=== PATIENT | female | born 1985 ===

== ENCOUNTER 2020-07-24 15:52 | Outpatient (REF) | payer MEDICAID, SELFPAY ==
[2020-07-24 16:28] LABS: COVID-19 Test Negative (Negative)
== END 2020-07-24 15:53 | disposition home or self-care (01) ==
LOC: HO.LAB 15:52
PROVIDERS: Visit Provider Internal Medicine
DX: Z12.31 Encounter for screening mammogram for malignant neoplasm of breast (principal)
CPT/HCPCS: 87635

== ENCOUNTER 2021-02-10 08:30 | Outpatient (REF) | payer MEDICAID, SELFPAY ==
[2021-02-10 15:25] LABS: CT PCR NOT DETECTED (Not Detect.); NG PCR NOT DETECTED (Not Detect.)
[2021-02-11 12:33] LABS: BV Int Neg Control Negative (Negative); BV Int Pos Control Positive (Positive)
[2021-02-12 21:57] LABS: HPV mRNA E6/E7 rflx Not Detected (Not Detected)
== END 2021-02-10 08:31 | disposition home or self-care (01) ==
LOC: HO.LAB 08:30
PROVIDERS: Visit Provider Advanced Practice Midwife
DX: Z01.419 Encounter for gynecological examination (general) (routine) without abnormal findings (principal); Z11.51 Encounter for screening for human papillomavirus (HPV); Z11.3 Encounter for screening for infections with a predominantly sexual mode of transmission; N76.0 Acute vaginitis; B96.89 Other specified bacterial agents as the cause of diseases classified elsewhere; N63.10 Unspecified lump in the right breast, unspecified quadrant; N63.20 Unspecified lump in the left breast, unspecified quadrant; Z98.890 Other specified postprocedural states
CPT/HCPCS: 87480; 87491; 87510; 87591; 87624; 87660; 88142

== ENCOUNTER → 2021-03-20 13:13 | Outpatient (BNVA) | payer MEDICAID, SELFPAY | PROVIDERS: Visit Provider Surgery | DX: Z30.46 Encounter for surveillance of implantable subdermal contraceptive (principal); N63.10 Unspecified lump in the right breast, unspecified quadrant; N63.20 Unspecified lump in the left breast, unspecified quadrant | CPT/HCPCS: 99202 ==

== ENCOUNTER 2021-04-10 14:09 | Outpatient (REF) | payer MEDICAID, SELFPAY ==
--- NOTE | ~2021-04-10 | US_ITS ---
EXAMINATION: US DIAGNOSTIC ULTRASOUND BREAST, LEFT CLINICAL INFORMATION: Palpable abnormality and mammographic densities. COMPARISON: Mammogram of same day. TECHNIQUE: Ultrasound of the breast is performed with real-time cotter scale imaging and color Doppler. FINDINGS: Targeted right breast ultrasound in region of palpable abnormalities 12:00 position demonstrates a well-circumscribed hypoechoic lesion with increased through sound transmission with the appearance of a simple cyst approximately 7 x 3 x 6 mm in size. At the 12:00 position 10 cm from nipple there is a hypoechoic circumscribed lesion without internal vascularity and with some mild distal through sound transmission which may represent a complex cyst. This measures approximately 7 mm in size. Scanning of the left breast in region of palpable abnormality not o'clock position did not demonstrate any abnormal cystic or solid mass. At the 4:00 location approximately 8 cm from the nipple there is a well-circumscribed hypoechoic lesion with increased through sound transmission and no internal vascularity. This may represent a fibroadenoma or complex cyst and measures approximately 7 x 8 x 8 mm in size. Results are discussed with the patient at time of visit. US/US breast LT limited IMPRESSION: Bilateral breast findings as described above which are likely benign in nature. Recommend 6 month follow-up bilateral breast ultrasound to ensure stability. ASSESSMENT: BI-RADS 3: Probably Benign RECOMMENDATION: Diagnostic mammography in 6 months.
--- NOTE | ~2021-04-10 | US_ITS ---
EXAMINATION: US DIAGNOSTIC ULTRASOUND BREAST, RIGHT CLINICAL INFORMATION: Bilateral mammographic finding. COMPARISON: Mammography of same day. TECHNIQUE: Ultrasound of the breast is performed with real-time cotter scale imaging and color Doppler. FINDINGS: Targeted right breast ultrasound in region of palpable abnormalities 12:00 position demonstrates a well-circumscribed hypoechoic lesion with increased through sound transmission with the appearance of a simple cyst approximately 7 x 3 x 6 mm in size. At the 12:00 position 10 cm from nipple there is a hypoechoic circumscribed lesion without internal vascularity and with some mild distal through sound transmission which may represent a complex cyst. This measures approximately 7 mm in size. Scanning of the left breast in region of palpable abnormality not o'clock position did not demonstrate any abnormal cystic or solid mass. At the 4:00 location approximately 8 cm from the nipple there is a well-circumscribed hypoechoic lesion with increased through sound transmission and no internal vascularity. This may represent a fibroadenoma or complex cyst and measures approximately 7 x 8 x 8 mm in size. Results are discussed with the patient at time of visit. US/US breast RT limited IMPRESSION: Bilateral breast findings as described above which are likely benign in nature. Recommend 6 month follow-up bilateral breast ultrasound to ensure stability. ASSESSMENT: BI-RADS 3: Probably Benign RECOMMENDATION: Diagnostic mammography in 6 months.
--- NOTE | ~2021-04-10 | MM_ITS ---
EXAMINATION: MM DIAGNOSTIC DIGITAL BREAST TOMOSYNTHESIS, BILATERAL US TARGETED BREAST, BILATERAL CLINICAL INFORMATION: Bilateral breast lumps. The lifetime risk of breast cancer based on the Tyrer-Cuzick Model is 14.4%. COMPARISON: Mammography: None. TECHNIQUE: Digital breast tomosynthesis is performed in both the craniocaudal and mediolateral oblique views along with computer-aided detection (CAD). Synthesized 2-D images are generated from the tomosynthesis. Additional right mediolateral oblique spot compression views performed. Bilateral targeted breast ultrasound. FINDINGS: The breasts are heterogeneously dense, which may obscure small masses (ACR BI-RADS breast composition Category c). There is a density seen central deep aspect right breast on craniocaudal view which on spot compression view is seen to represent superimposition of densities. There are numerous bilateral axillary lymph nodes with extension into the upper outer breast as intramammary lymph nodes. At approximately the 12 o'clock location of the right breast, there are 2 lesions present, 1 approximately 8 cm from the nipple, measuring 1.0 x 0.7 cm in size and is smoothly marginated. The 2nd lesion is approximately 12 cm from the nipple, with mildly lobulated border measuring 8 mm in diameter. Within the inferior aspect of the left breast, there is a circumscribed approximately 8 x 10 mm density approximately 7 cm from the nipple. Targeted right breast ultrasound in region of palpable abnormalities at 12 o'clock position demonstrates a well-circumscribed hypoechoic lesion with increased through sound transmission with the appearance of a simple cyst approximately 7 x 3 x 6 mm in size. At the 12 o'clock position, 10 cm from nipple, there is a hypoechoic circumscribed lesion without internal vascularity and with some mild distal through sound transmission which may represent a complex cyst. This measures approximately 7 mm in size. Scanning of the left breast in region of palpable abnormality at 9 o'clock position did not demonstrate any abnormal cystic or solid mass. At the 4 o'clock location, approximately 8 cm from the nipple, there is a well-circumscribed hypoechoic lesion with increased through sound transmission and no internal vascularity. This may represent a fibroadenoma or complex cyst and measures approximately 7 x 8 x 8 mm in size. Results are discussed with the patient at time of visit. MM/MM tomosynthesis diagnostic BI IMPRESSION: Bilateral breast findings, as described above, which are likely benign in nature. Recommend 6-month followup bilateral breast ultrasound to ensure stability. ASSESSMENT: BI-RADS 3: Probably Benign. RECOMMENDATION: Bilateral diagnostic breast ultrasound in 6 months This patient's information was entered into a reminder system with a target due date for their next mammogram.
== END 2021-04-10 14:10 | disposition home or self-care (01) ==
LOC: HO.MAMMO 14:09
PROVIDERS: Visit Provider Advanced Practice Midwife
DX: N63.15 Unspecified lump in the right breast, overlapping quadrants (principal); N63.23 Unspecified lump in the left breast, lower outer quadrant
CPT/HCPCS: 76642; 77062; 77066

== ENCOUNTER → 2021-04-17 14:57 | Outpatient (BNVA) | payer MEDICAID, SELFPAY | PROVIDERS: Visit Provider Surgery | DX: Z30.46 Encounter for surveillance of implantable subdermal contraceptive (principal); N60.09 Solitary cyst of unspecified breast | CPT/HCPCS: 99212 ==

== ENCOUNTER 2021-05-07 13:25 | Outpatient (REF) | payer MEDICAID, SELFPAY ==
--- NOTE | ~2021-05-07 | FL_ITS ---
EXAMINATION: XR FLUOROSCOPY WITH IMAGES CLINICAL INFORMATION: Nexplanon removal common minus surgery. COMPARISON: None. TECHNIQUE: Fluoroscopy performed by Dr. Dueñas. Fluoroscopy time: 181.1 second. DAP: [id number] [id number] Images: 1 FINDINGS: A single image obtained through the left arm reveals metallic marker placed adjacent to the left distal humerus where implant has been placed subcutaneously. FL/FL guidance in OR IMPRESSION: Fluoroscopy was provided to Dr. Vaz for removal of implant from the left arm.
[2021-05-07 13:55] VITALS: BMI 32.2
[2021-05-07 13:56] VITALS: BP 158/89; PULSE 89; RESP 16; TEMP 36.7; O2SAT 100
[2021-05-07 15:10] VITALS: BP 143/82; PULSE 84; RESP 16; O2SAT 100
--- NOTE | 2021-05-07 16:14 | W.PM.OPN ---
Operative Note Operative Note Date of Service: 05/07/21 Narrative: Preoperative diagnosis: Nexplanon left upper arm Postoperative diagnosis: Same Procedure: Excision of Nexplanon, left upper arm, with fluoroscopy Surgeon: Ochoa Dueñas MD Radio Announcer: No physician Anesthesia: Local Indications for procedure: 35-year-old female presenting for removal of a Nexplanon which was placed at least 5 years ago in the left upper arm. Patient is unable to palpate the implant and is not sure where it is located within the arm. Operative findings: Nexplanon left upper arm Specimen: None Estimated blood loss: 2 mL Complications: None Procedure details: Patient was brought to the minor surgery suite and placed in a supine position. The site of surgery was confirmed by the patient in the left upper arm. After assuring informed consent confirming the patient's name and date of and allergies, the skin over the left upper arm was prepped with Betadine and draped in a sterile fashion. Fluoroscopy was used to localize the site of the Nexplanon implant. A small area was anesthetized using lidocaine 1% with epinephrine. A longitudinal incision was then made directly over this location and carried down through subcutaneous tissue. Gentle probing of this area revealed no definite palpable implant. Fluoroscopy was then used to localize the implant which was actually inferior to the incision. This was within the subcutaneous tissue. The implant was grasped with a hemostat and dissected free from the surrounding subcutaneous tissue. Wounds were checked for hemostasis. Skin was then closed using interrupted 5 0 nylon sutures. Sterile dressings were then applied. The patient tolerated the procedure well. She was discharged to home in stable condition.
== END 2021-05-07 13:26 | disposition home or self-care (01) ==
LOC: HO.MS 13:25
PROVIDERS: Visit Provider Surgery
PROC: (CPT 11982; principal; 2021-05-07 13:20)
DX: Z30.46 Encounter for surveillance of implantable subdermal contraceptive (principal)
CPT/HCPCS: 11982

== ENCOUNTER → 2021-05-15 14:10 | Outpatient (BNVA) | payer MEDICAID, SELFPAY | PROVIDERS: Visit Provider Surgery | DX: Z30.46 Encounter for surveillance of implantable subdermal contraceptive (principal) | CPT/HCPCS: 99212 ==

== ENCOUNTER → 2021-05-19 14:27 | Outpatient (BNVA) | payer MEDICAID, SELFPAY | PROVIDERS: Visit Provider Advanced Practice Midwife | DX: Z30.8 Encounter for other contraceptive management (principal) | CPT/HCPCS: 99212 ==

== ENCOUNTER → 2021-09-15 14:16 | Outpatient (BNVA) | payer MEDICAID, SELFPAY | PROVIDERS: Visit Provider Advanced Practice Midwife | DX: Z30.09 Encounter for other general counseling and advice on contraception (principal) | CPT/HCPCS: 99212 ==

== ENCOUNTER 2021-10-23 14:27 | Outpatient (REF) | payer MEDICAID, SELFPAY ==
--- NOTE | ~2021-10-23 | US_ITS ---
EXAMINATION: US DIAGNOSTIC ULTRASOUND BREAST, RIGHT US DIAGNOSTIC ULTRASOUND BREAST, LEFT CLINICAL INFORMATION: Probable benign ultrasound findings for short interval six-month follow-up, 2 on right and one on left. Age 36. Family history breast cancer, maternal aunt. TC score 14%. COMPARISON: Mammography and bilateral targeted breast ultrasound 04/10/2021. TECHNIQUE: Ultrasound of the left breast is targeted to the outer breast. Ultrasound the right breast is targeted to the upper breast. Grayscale imaging and color Doppler are performed without and with harmonics. FINDINGS: Right: The oval simple cyst 12:00 position right breast is no longer demonstrated. The probable complicated cyst 12:00 position right breast is stable, measuring under 1 cm. Margins are smooth and overall morphology and ultrasound appearance is similar to prior imaging. There is no associated internal or peripheral color flow. There is no strong posterior through transmission of sound or posterior acoustic shadowing. Lesion was previously described at 10 cm from nipple but with movement of breast, there is variability in location and can be found today as close as 7 cm from the nipple depending on positioning. Finding will be reassessed again in 6 months. Left: The circumscribed complicated predominantly cystic lesion 4:00 position 8 cm from nipple appears stable in size and ultrasound appearance, measuring under 1 cm. There are geographic internal echoes which may suggest an acorn/foam cyst with apocrine metaplasia. There is no peripheral or internal color flow. There is increased through-transmission of sound. Finding will be reassessed again in 6 months. Results are discussed with the patient at time of visit. US/US breast LT limited IMPRESSION: Right: -Probable benign complicated cyst 12:00 under 1 cm is stable from 04/10/2021. -Simple cyst 12:00 position resolved. Left: -Probable benign complicated acorn/foam cyst 4:00 position under 1 cm is stable from 04/10/2021. ASSESSMENT: BI-RADS 3: Probably Benign RECOMMENDATION: Bilateral targeted ultrasound in 6 months.
== END 2021-10-23 14:28 | disposition home or self-care (01) ==
LOC: HO.MAMMO 14:27
PROVIDERS: Visit Provider Surgery
DX: N60.02 Solitary cyst of left breast (principal); N60.01 Solitary cyst of right breast
CPT/HCPCS: 76642

== ENCOUNTER 2021-12-03 18:28 | Emergency (ER) | payer MEDICAID, SELFPAY ==
--- NOTE | ~2021-12-03 | CT_ITS ---
EXAMINATION: CT HEAD WITHOUT CONTRAST CT CERVICAL SPINE WITHOUT CONTRAST CLINICAL INFORMATION: Headache and neck pain. COMPARISON: None. TECHNIQUE: Contiguous axial imaging was performed from the skull base to vertex without intravenous administration of contrast. Contiguous axial imaging was performed from the upper chest through the skull base without intravenous administration of contrast. Coronal and sagittal reformats were obtained at the acquisition workstation. This CT examination was performed using dose optimization techniques as appropriate, variously including the following: *Automated exposure control *Adjustment of mA and/or kV according to patient size (this includes techniques or standardized protocols for targeted exams where dose is matched to indication/reason for exam; i.e. extremities or head) *Use of iterative reconstruction technique DLP: 598 mGy-cm FINDINGS: Head: There is no evidence of acute intracranial hemorrhage or edematous territorial infarction. There is no abnormal attenuation within the brain parenchyma. Galvan-white matter differentiation is preserved. The ventricles are normal in size and configuration. No evidence for obstructive hydrocephalus. No abnormal mass effect or midline shift. No extra-axial fluid collections. 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 No acute osseous or soft tissue abnormalities. The mastoid air cells and paranasal sinuses are clear. Cervical Spine: The atlantooccipital and atlantoaxial articulations remain well aligned. Straightening of the normal cervical lordosis. Otherwise, there is anatomic alignment of the vertebral bodies and posterior elements. No evidence of acute fracture or subluxation. The vertebral body heights and disc spaces are maintained. There is no prevertebral soft tissue swelling. Heterogeneous and enlarged left lobe of the thyroid with multiple nodules that are not entirely well delineated and difficult to measure. The remaining cervical soft tissues are normal in appearance. The lung apices demonstrate no abnormalities. CT/CT cervical spine wo con IMPRESSION: 1. No acute intracranial pathology. 2. No acute cervical spinal fractures or malalignment. 3. Enlarged, heterogeneous and nodular left lobe of the thyroid. Recommend correlation with a nonemergent thyroid ultrasound. 4. 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
--- NOTE | ~2021-12-03 | XR_ITS ---
EXAMINATION: XR ELBOW, LEFT CLINICAL INFORMATION: Left elbow pain COMPARISON: None TECHNIQUE: AP, lateral, and oblique views of the left elbow. FINDINGS: The bones and soft tissues are normal. No fracture or joint effusion. Alignment is anatomic. Joint spaces are maintained. XR/XR elbow LT min 3V IMPRESSION: No acute osseous abnormality.
[2021-12-03 18:48] VITALS: BP 145/92; PULSE 98; RESP 18; TEMP 36.7; O2SAT 99; BMI 34.3
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
[2021-12-03 21:05] LABS: UPreg QC Valid YES; Urine Pregnancy NEGATIVE (NEGATIVE)
[2021-12-03] MEDS: Ketorolac Tromethamine 30 MG/ML VIAL IM (21:47)
== END 2021-12-03 22:29 | disposition home or self-care (01) ==
PROVIDERS: Physician Assistant; Emergency Provider Internal Medicine
DX: S06.0X0A Concussion without loss of consciousness, initial encounter (principal); S13.4XXA Sprain of ligaments of cervical spine, initial encounter; V43.52XA Car driver injured in collision with other type car in traffic accident, initial encounter; Y93.89 Activity, other specified; Y92.414 Local residential or business street as the place of occurrence of the external cause; Y99.9 Unspecified external cause status
CPT/HCPCS: 70450; 72125; 73080; 81025; 96372; 99284; J1885

== ENCOUNTER 2022-01-13 13:20 | Outpatient (REF) | payer MEDICAID, SELFPAY ==
--- NOTE | ~2022-01-13 | US_ITS ---
EXAMINATION: US THYROID CLINICAL INFORMATION: Goiter. COMPARISON: Ultrasound soft tissue head and neck 06/23/2016. TECHNIQUE: Linear transducer grayscale and color Doppler examination with attention to the region of the thyroid. FINDINGS: SIZE: Measurements of the thyroid lobes and nodules are given in sagittal, anteroposterior and transverse dimensions respectively. Right Thyroid Lobe: 5.92 x 1.51 x 2.13 cm, volume 9.98 mL. Parenchyma: The gland echotexture is homogeneous. Thyroid vascularity is normal. Left Thyroid Lobe: 5.46 x 2.65 x 2.13 cm, volume 16.1 mL. Parenchyma: The gland echotexture is homogeneous. Thyroid vascularity is normal. Isthmus: 0.39 cm in maximum AP dimension. Estimated total number of nodules greater than or equal to 1 cm: 2. Investigation Specialist nodules are described as follows: 1. Location: Left upper. Size: 1.1 x 0.57 x 1.2 cm, volume 0.39 mL. Nodule characteristics: Composition: Spongiform (0). Echogenicity: 0 Shape: 0 Margins: 0 Echogenic Foci: 0 ACR TI-RADS total points: 0 ACR TI-RADS category: 1 2. Location: Left midpole. Size: 3.3 x 2.0 x 2.2 cm, volume 7.6 mL. Nodule characteristics: Composition: Solid/almost completely solid (2). Echogenicity: Hypoechoic (2). Shape: Not taller than wide (0). Margins: Smooth (0). Echogenic Foci: None (0). ACR TI-RADS total points: 4 ACR TI-RADS category: 4 NODES: No lymphadenopathy is seen in the tissue surrounding the thyroid gland. US/US thyroid IMPRESSION: Mild thyromegaly left lobe slightly larger. Two thyroid nodules left lobe. The midpole nodule appears more solid and heterogeneous. TI-RADS score is 4. Recommend short-term follow-up or US-guided fine needle biopsy. ACR TI-RADS RECOMMENDATION REFERENCE: Ultrasound-guided fine-needle aspiration, followup ultrasound, no further follow up. * TR1 (0 point) and TR 2 (2 points): No FNA or follow up * TR3 (3 points): FNA if more than or equal to 2.5 cm in maximum dimension, followup ultrasound in 1, 3 and 5 years if 1.5 to 2.4 cm in maximum dimension. * TR4 (4-6 points): FNA if more than or equal to 1.5 cm in maximum dimension, followup ultrasound in 1, 2, 3 and 5 years if 1 to 1.4 cm in maximum dimension. * TR5 (more than or equal to 7 points): FNA if more than or equal to 1 cm in maximum dimension, followup ultrasound every year for 5 years if 0.5 to 0.9 cm in maximum dimension. * TR3, TR4 or TR5 nodules that are below the size threshold for follow up receive no follow up.
== END 2022-01-13 13:21 | disposition home or self-care (01) ==
LOC: HO.US 13:20
PROVIDERS: Visit Provider Registered Nurse
DX: E04.1 Nontoxic single thyroid nodule (principal)
CPT/HCPCS: 76536

== ENCOUNTER 2022-02-17 08:54 | Outpatient (REF) | payer MEDICAID, SELFPAY ==
--- NOTE | ~2022-02-17 | US_ITS ---
EXAMINATION: US ULTRASOUND-GUIDED FINE NEEDLE ASPIRATION CLINICAL INFORMATION: Single left thyroid nodule. COMPARISON: Ultrasound thyroid 01/13/2022. TECHNIQUE: Following explaining ultrasound-guided fine-needle biopsy/aspiration procedure, benefits and risks of the left thyroid nodule, a written consent was obtained. Patient was placed supine on ultrasound stretcher and preliminary ultrasound imaging was obtained through the left gland. An optimal site was selected along the left anterior neck and marked. The marked site was cleaned and draped in the usual sterile manner. 1% lidocaine was injected at the puncture site. Under ultrasound guidance, a 22-gauge needle attached to syringe was inserted and a 3-pass fine-needle aspiration biopsy was performed. Complete hemostasis was achieved at the puncture site post procedure. Sterile Band-Aid was applied at the puncture site. Postbiopsy instructions were handed to patient with an icepack given to be applied at the puncture site. FINDINGS: There is a complex midpole nodule left lobe. A 3-pass fine-needle biopsy aspiration was performed. Immediate pathology results revealed adequate clusters of thyroid cells seen. US/US guided fine needle asp IMPRESSION: Successful ultrasound-guided 3-pass fine-needle biopsy aspiration of left midpole nodule performed.
[2022-02-17] MEDS: Lidocaine HCl 1 % MPF 5 ML VIAL SUBCUT (10:18)
== END 2022-02-17 08:55 | disposition home or self-care (01) ==
LOC: HO.US 08:54
PROVIDERS: Visit Provider Registered Nurse
DX: E04.1 Nontoxic single thyroid nodule (principal)
CPT/HCPCS: 10005; 88172; 88173; 88177

== ENCOUNTER 2022-04-22 13:55 | Outpatient (REF) | payer MEDICAID, SELFPAY ==
--- NOTE | ~2022-04-22 | US_ITS ---
EXAMINATION: US DIAGNOSTIC ULTRASOUND BREAST, RIGHT US DIAGNOSTIC ULTRASOUND BREAST, LEFT CLINICAL INFORMATION: Follow-up probable benign bilateral nodularity initially noted 04/10/2021. Age 36. Family history breast cancer, maternal aunt. TC score 14%. COMPARISON: Bilateral breast ultrasound 10/23/2021 and 04/10/2021 (diagnostic, BI-RADS 3); digital breast tomosynthesis 04/10/2021. TECHNIQUE: Bilateral breast ultrasound is targeted to the areas for follow-up. Grayscale imaging and color Doppler are performed without and with harmonics. FINDINGS: Right: Smooth macrolobulated hypoechoic nodule under 1 cm with increased through-transmission of sound and no associated color flow shows no significant changes from prior exams. Finding will be reassessed again in 12 months. Left: Smooth hypoechoic nodule 4:00 position 8 cm from nipple under 1 cm with increased through-transmission of sound and no color flow shows no significant changes from prior exams. Finding will be reassessed again in 12 months. Results are discussed with the patient at time of visit. US/US breast LT limited IMPRESSION: Bilateral nodularity similar to prior studies. ASSESSMENT: BI-RADS 3: Probably Benign RECOMMENDATION: Bilateral targeted ultrasound in 12 months. This patient's information was entered into a reminder system with a target due date for their next breast imaging.
--- NOTE | ~2022-04-22 | US_ITS ---
EXAMINATION: US DIAGNOSTIC ULTRASOUND BREAST, RIGHT US DIAGNOSTIC ULTRASOUND BREAST, LEFT CLINICAL INFORMATION: Follow-up probable benign bilateral nodularity initially noted 04/10/2021. Age 36. Family history breast cancer, maternal aunt. TC score 14%. COMPARISON: Bilateral breast ultrasound 10/23/2021 and 04/10/2021 (diagnostic, BI-RADS 3); digital breast tomosynthesis 04/10/2021. TECHNIQUE: Bilateral breast ultrasound is targeted to the areas for follow-up. Grayscale imaging and color Doppler are performed without and with harmonics. FINDINGS: Right: Smooth macrolobulated hypoechoic nodule under 1 cm with increased through-transmission of sound and no associated color flow shows no significant changes from prior exams. Finding will be reassessed again in 12 months. Left: Smooth hypoechoic nodule 4:00 position 8 cm from nipple under 1 cm with increased through-transmission of sound and no color flow shows no significant changes from prior exams. Finding will be reassessed again in 12 months. Results are discussed with the patient at time of visit. US/US breast RT limited IMPRESSION: Bilateral nodularity similar to prior studies. ASSESSMENT: BI-RADS 3: Probably Benign RECOMMENDATION: Bilateral targeted ultrasound in 12 months. This patient's information was entered into a reminder system with a target due date for their next breast imaging.
== END 2022-04-22 13:56 | disposition home or self-care (01) ==
LOC: HO.MAMMO 13:55
PROVIDERS: Visit Provider Surgery
DX: O09.41 Supervision of pregnancy with grand multiparity, first trimester (principal); O09.291 Supervision of pregnancy with other poor reproductive or obstetric history, first trimester; O26.21 Pregnancy care for patient with recurrent pregnancy loss, first trimester; O26.891 Other specified pregnancy related conditions, first trimester; N92.6 Irregular menstruation, unspecified; N63.10 Unspecified lump in the right breast, unspecified quadrant; N63.20 Unspecified lump in the left breast, unspecified quadrant; Z3A.01 Less than 8 weeks gestation of pregnancy; Z80.3 Family history of malignant neoplasm of breast
CPT/HCPCS: 76642; 81025; 99212

== ENCOUNTER 2022-04-24 13:53 | Outpatient (REF) | payer MEDICAID, SELFPAY ==
--- NOTE | ~2022-04-24 | US_ITS ---
EXAMINATION: US OBSTETRICAL ULTRASOUND CLINICAL INFORMATION: Irregular menstruation COMPARISON: 02/14/2013. LMP: Unknown. Gestational age by maternal dates is unknown. Estimated date of delivery by maternal dates is unknown. TECHNIQUE: Transabdominal and transvaginal imaging of the pelvis was performed utilizing grayscale and color Doppler technique with M mode imaging FINDINGS: There is a single intrauterine gestational sac with visible yolk sac, embryo/fetus, and cardiac activity. There is no significant subchorionic hemorrhage or hematoma. HR: 115 beats per minute. CRL (crown rump length): 1.49 cm (6 weeks, 2 days +/- 4 days). ABEL (estimated date of delivery): 12/16/2022 +/- 4 days. MATERNAL ADNEXA: The right maternal ovary measures 3.2 x 2.2 x 2.1 cm. There is a 1.8 cm corpus luteum in the right ovary. The left maternal ovary measures 2.6 x 1.8 x 3.1 cm. There is no significant maternal adnexal mass. No maternal pelvic ascites. US/US OB transvaginal IMPRESSION: 1. Single intrauterine gestation with ultrasound gestational age of 6 weeks, 2 days +/- 4 days. 2. Estimated date of delivery is 12/16/2022 +/- 4 days. 3. No maternal adnexal mass or pelvic ascites.
--- NOTE | ~2022-04-24 | US_ITS ---
EXAMINATION: US OBSTETRICAL ULTRASOUND CLINICAL INFORMATION: Irregular menstruation COMPARISON: 02/14/2013. LMP: Unknown. Gestational age by maternal dates is unknown. Estimated date of delivery by maternal dates is unknown. TECHNIQUE: Transabdominal and transvaginal imaging of the pelvis was performed utilizing grayscale and color Doppler technique with M mode imaging FINDINGS: There is a single intrauterine gestational sac with visible yolk sac, embryo/fetus, and cardiac activity. There is no significant subchorionic hemorrhage or hematoma. HR: 115 beats per minute. CRL (crown rump length): 1.49 cm (6 weeks, 2 days +/- 4 days). ABEL (estimated date of delivery): 12/16/2022 +/- 4 days. MATERNAL ADNEXA: The right maternal ovary measures 3.2 x 2.2 x 2.1 cm. There is a 1.8 cm corpus luteum in the right ovary. The left maternal ovary measures 2.6 x 1.8 x 3.1 cm. There is no significant maternal adnexal mass. No maternal pelvic ascites. US/US OB <= 14 weeks fetus IMPRESSION: 1. Single intrauterine gestation with ultrasound gestational age of 6 weeks, 2 days +/- 4 days. 2. Estimated date of delivery is 12/16/2022 +/- 4 days. 3. No maternal adnexal mass or pelvic ascites.
== END 2022-04-24 13:54 | disposition home or self-care (01) ==
LOC: HO.US 13:53
PROVIDERS: Visit Provider Advanced Practice Midwife
DX: Z34.90 Encounter for supervision of normal pregnancy, unspecified, unspecified trimester (principal)
CPT/HCPCS: 76801; 76817

== ENCOUNTER 2022-05-08 11:27 | Outpatient (REF) | payer MEDICAID, SELFPAY ==
--- NOTE | ~2022-05-08 | US_ITS ---
EXAMINATION: US OBSTETRICAL ULTRASOUND CLINICAL INFORMATION: Personal history of other complication. COMPARISON: None. LMP: Unknown. Gestational age by maternal dates is unknown. Estimated date of delivery by maternal dates is unknown. TECHNIQUE: Routine transabdominal imaging of pelvis is performed. FINDINGS: There is a single intrauterine gestational sac with visible yolk sac, embryo/fetus, and cardiac activity. There is no significant subchorionic hemorrhage or hematoma. HR: 165 beats per minute. CRL (crown rump length): 1.80 cm (8 weeks 3 days +/- 4 days). ABEL (estimated date of delivery): 12/15/2022 +/- 4 days. MATERNAL ADNEXA: The right maternal ovary measures 4.3 x 3.0 x 2.1 cm. And appears unremarkable. The left maternal ovary measures 2.7 x 2.9 x 1.8 cm. It appears unremarkable There is no significant maternal adnexal mass. No maternal pelvic ascites. US/US OB <= 14 weeks fetus IMPRESSION: 1. Single intrauterine gestation with ultrasound gestational age of 8 weeks 3 days +/- 4 days. There is normal interval growth from previous study 04/24/2022 2. Estimated date of delivery is 12/15/2022 (+/- 4 days). 3. No maternal adnexal mass or pelvic ascites.
== END 2022-05-08 11:28 | disposition home or self-care (01) ==
LOC: HO.US 11:27
PROVIDERS: Visit Provider Advanced Practice Midwife
DX: O26.899 Other specified pregnancy related conditions, unspecified trimester (principal); N92.6 Irregular menstruation, unspecified; Z87.59 Personal history of other complications of pregnancy, childbirth and the puerperium; Z3A.00 Weeks of gestation of pregnancy not specified
CPT/HCPCS: 76801

== ENCOUNTER → 2022-05-21 14:06 | Outpatient (BNVA) | payer MEDICAID, SELFPAY | PROVIDERS: PCP Internal Medicine; Visit Provider Advanced Practice Midwife | DX: O09.521 Supervision of elderly multigravida, first trimester (principal); Z3A.10 10 weeks gestation of pregnancy | CPT/HCPCS: 99212 ==

== ENCOUNTER 2022-05-22 10:46 | Outpatient (REF) | payer MEDICAID, SELFPAY ==
[2022-05-22 13:17] LABS: Hematocrit 36.5 % (37.0-47.0); Hemoglobin 12.4 g/dl (12.0-16.0); Mean Corpuscular Hemoglobin 27.9 pg (27.0-33.0); Platelet Count 388 X10*3/uL (160-400); Red Blood Count 4.45 X10*6/uL (4.20-5.50); Red Cell Distribution Width 12.7 % (11.0-16.0); White Blood Count 10.2 X10*3/uL (4.8-10.8)
[2022-05-22 13:50] LABS: Glucose 1 Hour PP 50gm Dose 77 mg/dL (60-140)
[2022-05-22 14:16] LABS: Syphilis Screen Nonreactive (Nonreactive)
[2022-05-22 20:20] LABS: Amphetamine Screen Urine Not Detected (Not Detect); Barbiturates, Urine Not Detected (Not Detect); Benzodiazepines Screen Urine Not Detected (Not Detect); Cannabinoid Screen Urine Not Detected (Not Detect); Cocaine Screen Urine Not Detected (Not Detect); Fentanyl, urine Not Detected (Not Detect); Opiate Screen Urine Not Detected (Not Detect); Phencyclidine Screen Urine Not Detected (Not Detect)
[2022-05-25 03:45] LABS: HIV AB/AG Nonreactive (Nonreactive); HIV Num 1 0.07 S/CO (0.00-0.99); Hepatitis B Surface Antigen Negative (Negative); ~HepC Num1 0.04 S/CO (0.00-0.79); ~Hepatitis C Antibody Nonreactive (Nonreactive)
== END 2022-05-22 10:47 | disposition home or self-care (01) ==
LOC: HO.LAB 10:46
PROVIDERS: Visit Provider Advanced Practice Midwife
DX: Z32.01 Encounter for pregnancy test, result positive (principal)
CPT/HCPCS: 80307; 85027; 86762; 86780; 86787; 86803; 86850; 86900; 87086; 87340; 87389

== ENCOUNTER 2022-06-16 12:11 | Outpatient (REF) | payer MEDICAID, SELFPAY ==
[2022-06-16 18:15] LABS: CT PCR NOT DETECTED (Not Detect.); NG PCR NOT DETECTED (Not Detect.)
[2022-06-17 14:58] LABS: BV Int Neg Control Negative (Negative); BV Int Pos Control Positive (Positive)
[2022-06-18 14:56] LABS: HPV mRNA E6/E7 rflx Not Detected (Not Detected)
== END 2022-06-16 12:12 | disposition home or self-care (01) ==
LOC: HO.LNP 12:11
PROVIDERS: Visit Provider Advanced Practice Midwife
DX: O09.522 Supervision of elderly multigravida, second trimester (principal); Z3A.14 14 weeks gestation of pregnancy; Z87.74 Personal history of (corrected) congenital malformations of heart and circulatory system; Z11.3 Encounter for screening for infections with a predominantly sexual mode of transmission; Z63.4 Disappearance and death of family member
CPT/HCPCS: 87480; 87491; 87510; 87591; 87624; 87660; 88142; 99212

== ENCOUNTER → 2022-07-22 12:02 | Outpatient (BNVA) | payer MEDICAID, SELFPAY | PROVIDERS: PCP Internal Medicine; Visit Provider Advanced Practice Midwife | DX: O09.522 Supervision of elderly multigravida, second trimester (principal); Z3A.19 19 weeks gestation of pregnancy | CPT/HCPCS: 81003; 99212 ==

== ENCOUNTER 2022-08-20 07:59 | Outpatient (REF) | payer MEDICAID, SELFPAY ==
[2022-08-20 09:16] LABS: Hematocrit 31.9 % (37.0-47.0); Hemoglobin 10.5 g/dl (12.0-16.0); Mean Corpuscular HGB Conc 32.9 g/dl (31.0-35.0); Mean Corpuscular Hemoglobin 26.8 pg (27.0-33.0); Mean Corpuscular Volume 81.4 fL (80.0-98.0); Mean Platelet Volume 9.7 fL (9.4-12.3); NRBC Pct Auto 0.1 /100WBC (0.0-0.2); Platelet Count 349 X10*3/uL (160-400); Red Blood Count 3.92 X10*6/uL (4.20-5.50); Red Cell Distribution Width 12.9 % (11.0-16.0); White Blood Count 13.8 X10*3/uL (4.8-10.8)
== END 2022-08-20 08:00 | disposition home or self-care (01) ==
LOC: HO.LAB 07:59
PROVIDERS: PCP Internal Medicine; Visit Provider Advanced Practice Midwife
DX: O09.522 Supervision of elderly multigravida, second trimester (principal); Z3A.23 23 weeks gestation of pregnancy
CPT/HCPCS: 36415; 81003; 85027; 99212

== ENCOUNTER → 2022-09-17 08:06 | Outpatient (BNVA) | payer MEDICAID, SELFPAY | PROVIDERS: PCP Internal Medicine; Visit Provider Obstetrics & Gynecology | DX: Z34.82 Encounter for supervision of other normal pregnancy, second trimester (principal); Z3A.27 27 weeks gestation of pregnancy | CPT/HCPCS: 99212 ==

== ENCOUNTER 2022-10-01 06:59 | Outpatient (REF) | payer MEDICAID, SELFPAY ==
[2022-10-01 09:06] LABS: Hematocrit 31.4 % (37.0-47.0); Hemoglobin 9.7 g/dl (12.0-16.0); Mean Corpuscular HGB Conc 30.9 g/dl (31.0-35.0); Mean Corpuscular Hemoglobin 23.7 pg (27.0-33.0); Mean Corpuscular Volume 76.8 fL (80.0-98.0); Mean Platelet Volume 10.2 fL (9.4-12.3); NRBC Pct Auto 0.1 /100WBC (0.0-0.2); Platelet Count 331 X10*3/uL (160-400); Red Blood Count 4.09 X10*6/uL (4.20-5.50); Red Cell Distribution Width 13.6 % (11.0-16.0); White Blood Count 13.8 X10*3/uL (4.8-10.8)
[2022-10-01 09:40] LABS: Glucose 1 Hour PP 50gm Dose 128 mg/dL (60-140)
[2022-10-02 09:09] LABS: Syphilis Screen Nonreactive (Nonreactive)
== END 2022-10-01 07:00 | disposition home or self-care (01) ==
LOC: HO.LAB 06:59
PROVIDERS: Visit Provider Obstetrics & Gynecology
DX: O36.63X0 Maternal care for excessive fetal growth, third trimester, not applicable or unspecified (principal); Z3A.29 29 weeks gestation of pregnancy
CPT/HCPCS: 36415; 82950; 85027; 86780; 90471; 90715; 99212

== ENCOUNTER → 2022-10-15 09:33 | Outpatient (BNVA) | payer MEDICAID, SELFPAY | PROVIDERS: PCP Internal Medicine; Visit Provider Advanced Practice Midwife | DX: O09.523 Supervision of elderly multigravida, third trimester (principal); O99.343 Other mental disorders complicating pregnancy, third trimester; F32.A Depression, unspecified; F41.9 Anxiety disorder, unspecified; Z3A.31 31 weeks gestation of pregnancy; Z63.4 Disappearance and death of family member | CPT/HCPCS: 81003; 99212 ==

== ENCOUNTER 2022-10-19 13:19 | Outpatient (REF) | payer MEDICAID, SELFPAY | END 2022-10-19 13:20 | disposition home or self-care (01) | LOC: HO.MDS 13:19 | PROVIDERS: Visit Provider Internal Medicine Medical Oncology | DX: O99.013 Anemia complicating pregnancy, third trimester (principal); D50.9 Iron deficiency anemia, unspecified; Z3A.31 31 weeks gestation of pregnancy | CPT/HCPCS: 96365; J1756 ==

== ENCOUNTER 2022-10-27 10:00 | Outpatient (REF) | payer MEDICAID, SELFPAY | END 2022-10-27 10:01 | disposition home or self-care (01) | LOC: HO.MDS 10:00 | PROVIDERS: Visit Provider Internal Medicine Medical Oncology | DX: D50.9 Iron deficiency anemia, unspecified (principal) | CPT/HCPCS: 96365; J1756 ==

== ENCOUNTER → 2022-10-29 09:40 | Outpatient (BNVA) | payer MEDICAID, SELFPAY | PROVIDERS: PCP Internal Medicine; Visit Provider Advanced Practice Midwife | DX: O09.523 Supervision of elderly multigravida, third trimester (principal); O26.23 Pregnancy care for patient with recurrent pregnancy loss, third trimester; O99.343 Other mental disorders complicating pregnancy, third trimester; F41.8 Other specified anxiety disorders; Z3A.33 33 weeks gestation of pregnancy | CPT/HCPCS: 81003; 99212 ==

== ENCOUNTER 2022-11-03 10:50 | Outpatient (REF) | payer MEDICAID, SELFPAY | END 2022-11-03 10:51 | disposition home or self-care (01) | LOC: HO.MDS 10:50 | PROVIDERS: Visit Provider Internal Medicine Medical Oncology | DX: O99.013 Anemia complicating pregnancy, third trimester (principal); D50.9 Iron deficiency anemia, unspecified; Z3A.34 34 weeks gestation of pregnancy | CPT/HCPCS: 96365; J1756 ==

== ENCOUNTER 2022-11-20 08:44 | Outpatient (REF) | payer MEDICAID, SELFPAY ==
[2022-11-20 09:05] LABS: MANUAL DIFF FLAG NO
[2022-11-20 09:08] LABS: Basophils Percent Auto 0.2 % (0-2); Eosinophils Absolute Auto 0.1 X10*3/uL (0.0-0.4); Eosinophils Percent Auto 0.6 % (0-4); Hematocrit 33.8 % (37.0-47.0); Hemoglobin 10.6 g/dl (12.0-16.0); Imm Gran Abs Auto 0.35 X10*3/uL (0.00-0.03); Imm Gran Pct Auto 2.6 % (0.0-0.4); Lymphocytes Absolute Auto 1.9 X10*3/uL (1.2-4.9); Lymphocytes Percent Auto 14.4 % (20-40); Mean Corpuscular HGB Conc 31.4 g/dl (31.0-35.0); Mean Corpuscular Hemoglobin 24.4 pg (27.0-33.0); Mean Corpuscular Volume 77.9 fL (80.0-98.0); Mean Platelet Volume 9.7 fL (9.4-12.3); Monocytes Absolute Auto 0.8 X10*3/uL (0.1-1.2); Monocytes Percent Auto 5.9 % (2-11); Neutrophils Absolute Auto 10.2 x10*3/uL (2.0-8.3); Neutrophils Percent Auto 76.3 % (45-73); Platelet Count 297 X10*3/uL (160-400); Red Blood Count 4.34 X10*6/uL (4.20-5.50); Red Cell Distribution Width 20.9 % (11.0-16.0); White Blood Count 13.3 X10*3/uL (4.8-10.8)
== END 2022-11-20 08:45 | disposition home or self-care (01) ==
LOC: HO.MDS 08:44
PROVIDERS: Visit Provider Internal Medicine Medical Oncology
DX: D50.9 Iron deficiency anemia, unspecified (principal)
CPT/HCPCS: 36415; 85025; 96365; J1756

== ENCOUNTER 2022-11-27 09:32 | Outpatient (REF) | payer MEDICAID, SELFPAY | END 2022-11-27 09:33 | disposition home or self-care (01) | LOC: HO.MDS 09:32 | PROVIDERS: Visit Provider Internal Medicine Medical Oncology | DX: O99.013 Anemia complicating pregnancy, third trimester (principal); D50.9 Iron deficiency anemia, unspecified; O09.523 Supervision of elderly multigravida, third trimester; Z3A.38 38 weeks gestation of pregnancy | CPT/HCPCS: 96365; J1756 ==

== ENCOUNTER 2022-12-03 08:35 | Outpatient (REF) | payer MEDICAID, SELFPAY | END 2022-12-03 08:36 | disposition home or self-care (01) | LOC: HO.MDS 08:35 | PROVIDERS: Visit Provider Internal Medicine Medical Oncology | DX: O99.013 Anemia complicating pregnancy, third trimester (principal); D50.9 Iron deficiency anemia, unspecified; O09.523 Supervision of elderly multigravida, third trimester; Z3A.00 Weeks of gestation of pregnancy not specified | CPT/HCPCS: 96365; J1756 ==

== ENCOUNTER 2022-12-07 08:23 | Outpatient (REF) | payer MEDICAID, SELFPAY | END 2022-12-07 08:24 | disposition home or self-care (01) | LOC: HO.MDS 08:23 | PROVIDERS: Visit Provider Internal Medicine Medical Oncology | DX: O99.013 Anemia complicating pregnancy, third trimester (principal); D50.9 Iron deficiency anemia, unspecified; O09.523 Supervision of elderly multigravida, third trimester; Z3A.00 Weeks of gestation of pregnancy not specified | CPT/HCPCS: 96365; J1756 ==

== ENCOUNTER 2023-02-01 11:46 | Outpatient (REF) | payer MEDICAID, SELFPAY | END 2023-02-01 11:47 | disposition home or self-care (01) | LOC: HO.LNP 11:46 | PROVIDERS: PCP Internal Medicine; Visit Provider Advanced Practice Midwife | DX: Z39.2 Encounter for routine postpartum follow-up (principal); Z30.09 Encounter for other general counseling and advice on contraception; Z20.2 Contact with and (suspected) exposure to infections with a predominantly sexual mode of transmission | CPT/HCPCS: 81025; 99212 ==

== ENCOUNTER 2023-02-01 12:57 | Outpatient (REF) | payer MEDICAID, SELFPAY ==
[2023-02-01 15:50] LABS: CT PCR NOT DETECTED (Not Detect.); NG PCR NOT DETECTED (Not Detect.)
[2023-02-02 09:55] LABS: BV Int Neg Control Negative (Negative); BV Int Pos Control Positive (Positive)
[2023-02-03 03:45] LABS: Syphilis Screen Nonreactive (Nonreactive)
[2023-02-03 03:51] LABS: HBsAGNum1 0.36 S/CO (0.00-0.99); HIV AB/AG Nonreactive (Nonreactive); HIV Num 1 0.07 S/CO (0.00-0.99); Hepatitis B Surface Antigen Negative (Negative); ~HepC Num1 0.11 S/CO (0.00-0.79); ~Hepatitis C Antibody Nonreactive (Nonreactive)
== END 2023-02-01 12:58 | disposition home or self-care (01) ==
LOC: HO.LAB 12:57
PROVIDERS: Visit Provider Advanced Practice Midwife
DX: Z20.2 Contact with and (suspected) exposure to infections with a predominantly sexual mode of transmission (principal)
CPT/HCPCS: 0353U; 86780; 86803; 87340; 87389; 87480; 87510; 87660

== ENCOUNTER → 2023-02-08 10:55 | Outpatient (BNVA) | payer MEDICAID, SELFPAY | PROVIDERS: PCP Internal Medicine; Visit Provider Advanced Practice Midwife | DX: Z30.42 Encounter for surveillance of injectable contraceptive (principal) | CPT/HCPCS: 96372; 99211; Q3014 ==

== ENCOUNTER → 2023-03-05 13:58 | Outpatient (BNVA) | payer MEDICAID, SELFPAY | PROVIDERS: PCP Internal Medicine; Visit Provider Advanced Practice Midwife | DX: Z30.09 Encounter for other general counseling and advice on contraception (principal) | CPT/HCPCS: 81025; 99212 ==

== ENCOUNTER 2023-05-03 15:08 | Outpatient (AMB) | payer MEDICAID, SELFPAY ==
[2023-05-03 15:18] VITALS: BP 132/84; BMI 33.6
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
== END 2023-05-03 16:01 | disposition home or self-care (01) ==
LOC: HO.HWS 15:08
PROVIDERS: PCP Internal Medicine; Visit Provider Advanced Practice Midwife
DX: Z30.42 Encounter for surveillance of injectable contraceptive (principal); Z30.09 Encounter for other general counseling and advice on contraception; N63.10 Unspecified lump in the right breast, unspecified quadrant; N63.20 Unspecified lump in the left breast, unspecified quadrant; Z98.890 Other specified postprocedural states; N60.09 Solitary cyst of unspecified breast; Z32.02 Encounter for pregnancy test, result negative
CPT/HCPCS: 99213

== ENCOUNTER → 2023-05-03 15:08 | Outpatient (BNVA) | payer MEDICAID, SELFPAY | PROVIDERS: PCP Internal Medicine; Visit Provider Advanced Practice Midwife | DX: Z30.42 Encounter for surveillance of injectable contraceptive (principal); Z30.09 Encounter for other general counseling and advice on contraception; N63.10 Unspecified lump in the right breast, unspecified quadrant; N63.20 Unspecified lump in the left breast, unspecified quadrant; N60.09 Solitary cyst of unspecified breast; Z98.890 Other specified postprocedural states | CPT/HCPCS: 81025; 96372; 99213; J1050 ==

== ENCOUNTER 2023-05-07 13:53 | Outpatient (REF) | payer MEDICAID, SELFPAY ==
--- NOTE | ~2023-05-07 | US_ITS ---
EXAMINATION: US DIAGNOSTIC ULTRASOUND BREAST, BILATERAL CLINICAL INFORMATION: Recommended short interval follow-up of bilateral sonographic masses, right breast at 12:00 and in the left breast at 4:00. These masses have been followed since April 2021 when bilateral nodularity was noted on a baseline diagnostic mammogram performed for bilateral breast lumps. COMPARISON: This study is compared with multiple prior breast ultrasound dating back to 04/10/2021 and the baseline diagnostic mammogram, also from 04/10/2021. TECHNIQUE: Ultrasound of both breasts is performed with real-time cotter scale imaging and color Doppler. FINDINGS: In the 12:00 region of the right breast, 7 cm from the nipple, there is a 7 mm x 7 mm x 5 mm heterogeneous hypoechoic mass consisting of 2 contiguous, small intramammary lymph nodes. This is a normal finding which has not changed significantly since multiple prior studies. In the 4:00 region of the left breast, 8 cm from the nipple, there is an 8 mm x 7 mm x 5 mm bilobed hypoechoic structure which is decreased in overall girth and is slightly more hyperechoic. This structure has a small duct leading up to a period this represents an involuting, benign, complicated cyst. US/US breast LT limited mamm only IMPRESSION: Subcentimeter, sonographically benign structures in the 12:00 position of the right breast at 4:00 position of the left breast. No further imaging follow-up of these entities is indicated. Results are discussed with the patient at time of visit. ASSESSMENT: BI-RADS 2: Benign RECOMMENDATION: Routine annual mammography screening. This may commence at age 40 if no relative has been diagnosed with breast cancer under age 49. If there has been a relative diagnosed with cancer prior to age 49, then routine annual mammographic screening should begin when the patient is 10 years younger than the earliest age at diagnosis of breast cancer in the family. This patient's information was entered into a reminder system with a target due date for their next mammogram.
== END 2023-05-07 13:54 | disposition home or self-care (01) ==
LOC: HO.MAMMO 13:53
PROVIDERS: PCP Internal Medicine; Visit Provider Surgery
DX: R92.2 Inconclusive mammogram (principal)
CPT/HCPCS: 76642

== ENCOUNTER → 2023-05-07 14:00 | Outpatient (BNV) | payer MEDICAID, SELFPAY | PROVIDERS: PCP Internal Medicine; Visit Provider Radiology Diagnostic Radiology | DX: N63.15 Unspecified lump in the right breast, overlapping quadrants (principal); N63.24 Unspecified lump in the left breast, lower inner quadrant | CPT/HCPCS: 76642 ==

== ENCOUNTER 2023-06-07 13:12 | Outpatient (REF) | payer MEDICAID, SELFPAY ==
[2023-06-07 16:37] LABS: Cholesterol 188 mg/dL (<200); HDL Cholesterol 33 mg/dL (>40); LDL Cholesterol Calculated 92 mg/dL (<100); Triglycerides 316 mg/dL (<150)
[2023-06-07 16:46] LABS: TSH reflex Free T4 0.67 uIU/mL (0.32-4.0)
[2023-06-07 18:43] LABS: CT PCR NOT DETECTED (Not Detect.); NG PCR NOT DETECTED (Not Detect.)
[2023-06-08 04:11] LABS: Syphilis Screen Nonreactive (Nonreactive)
[2023-06-08 04:44] LABS: HIV AB/AG Nonreactive (Nonreactive); HIV Num 1 0.07 S/CO (0.00-0.99)
[2023-06-09 15:59] LABS: HCV Log PCR <1.18 NOT DETECTED Log IU/mL (NOT DETECTED); HepC Viral Load <15 NOT DETECTED IU/mL (NOT DETECTED)
[2023-06-09 22:44] LABS: TS Negative Control Passed; TS Panel A 0; TS Panel B 0; TS Positive Control Passed; TSpotTB Negative (Negative)
== END 2023-06-07 13:13 | disposition home or self-care (01) ==
LOC: HO.HHCL 13:12
PROVIDERS: Visit Provider Registered Nurse
DX: Z00.00 Encounter for general adult medical examination without abnormal findings (principal); Z11.4 Encounter for screening for human immunodeficiency virus [HIV]; Z11.1 Encounter for screening for respiratory tuberculosis; Z11.3 Encounter for screening for infections with a predominantly sexual mode of transmission
CPT/HCPCS: 0353U; 80061; 84443; 86481; 86780; 87389; 87522

== ENCOUNTER 2023-06-10 16:07 | Outpatient (REF) | payer MEDICAID, SELFPAY ==
[2023-06-11 08:09] LABS: HIV AB/AG Nonreactive (Nonreactive); HIV Num 1 0.04 S/CO (0.00-0.99)
== END 2023-06-10 16:08 | disposition home or self-care (01) ==
LOC: HO.HHCL 16:07
PROVIDERS: Visit Provider Registered Nurse
DX: Z11.4 Encounter for screening for human immunodeficiency virus [HIV] (principal)
CPT/HCPCS: 36415; 87389

== ENCOUNTER 2023-07-26 18:09 | Outpatient (REF) | payer MEDICAID, SELFPAY ==
[2023-07-26 18:57] LABS: Influenza A PCR NEGATIVE (Negative); Influenza B PCR NEGATIVE (Negative); Resp Syncy Virus RNA Qual PCR NEGATIVE (Negative); SARS COV2 PCR INHOUSE NEGATIVE (Negative)
== END 2023-07-26 18:10 | disposition home or self-care (01) ==
LOC: HO.HHCLNP 18:09
PROVIDERS: Visit Provider Emergency Medicine
DX: Z11.52 Encounter for screening for COVID-19 (principal); Z20.822 Contact with and (suspected) exposure to COVID-19; J06.9 Acute upper respiratory infection, unspecified
CPT/HCPCS: 0241U; 87070

== ENCOUNTER 2023-07-29 10:15 | Outpatient (AMB) | payer MEDICAID, SELFPAY ==
[2023-07-29 10:38] VITALS: BMI 36.0
--- NOTE | 2023-07-29 10:38 | AM.OFFVISNUR ---
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 Pt does report she has gained weight (22 lbs) since she started using Depo in January. She understands weight gain is a side effect of Depo and and she wants to continue the injections as she denies any other problems with the medication. Pt tolerated injection well and she will schedule her next injection in 12 weeks. Office Procedures Depo Questionnaire If YES to any of the following questions, please consult a provider. Date of last injection: 05/03/23 Date of last gynecology exam: 02/01/23 Menstrual pattern since last injection has been: Not Applicable Irregular bleeding?: No Breast lumps or other breast changes?: No Changes in weight or appetite?: Yes Depression or changes in mood?: No Abnormal hair growth or loss?: No Skin problems (rash, acne, discoloration)?: No Pain at the injection site?: No Headaches?: No Nervousness?: No Abdominal pain or cramping?: No Dizziness or nausea?: No Fatigue or weakness?: No Decrease in sexual drive?: No Chest pain or shortness of breath?: No Swelling in arms or legs?: No Form completed by?: Soo Aviles RN Office Meds Depo-Provera 150 mg/mL intramuscular syringe Performing Provider: Ara Nunez CNM [place] [facility] [place] [facility] Administered by: Soo Aviles on 07/29/23 10:44 Dose Route Admin Location Dispensed Lot Number Expiration Date [facility] Solar Installer 150 mg IM left deltoid 1 mL [id number] 01/08/25 65048-889-20 CLAIRE Coding Level of Care Code Established Pt Est Pt Level 1 (25606) Patient Type Established History Problem Focused Medical Decision Making Straight Forward Time Spent (min) 12 Assessment & Plan Assessment & Plan Orders: Orders AMB Medroxyprogesterone Injection Patient Supplied Today Z30.42 - Encounter for surveillance of injectable contraceptive
== END 2023-07-29 10:32 | disposition home or self-care (01) ==
LOC: HO.HWS 10:15
PROVIDERS: PCP Internal Medicine; Visit Provider Advanced Practice Midwife
DX: Z30.42 Encounter for surveillance of injectable contraceptive (principal)

== ENCOUNTER → 2023-07-29 10:15 | Outpatient (BNVA) | payer MEDICAID, SELFPAY | PROVIDERS: PCP Internal Medicine; Visit Provider Advanced Practice Midwife | DX: Z30.42 Encounter for surveillance of injectable contraceptive (principal) | CPT/HCPCS: 96372; 99211; J1050 ==

== ENCOUNTER 2023-08-05 14:43 | Outpatient (AMB) | payer MEDICAID, SELFPAY ==
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
[2023-08-05 14:53] VITALS: BP 142/67; PULSE 101; BMI 36.0
== END 2023-08-05 15:12 | disposition home or self-care (01) ==
PROVIDERS: PCP Internal Medicine; Visit Provider Surgery
DX: N63.10 Unspecified lump in the right breast, unspecified quadrant (principal); N63.20 Unspecified lump in the left breast, unspecified quadrant; Z80.3 Family history of malignant neoplasm of breast
CPT/HCPCS: 99213

== ENCOUNTER → 2023-08-05 14:43 | Outpatient (BNVA) | payer MEDICAID, SELFPAY | PROVIDERS: PCP Internal Medicine; Visit Provider Surgery | DX: N63.10 Unspecified lump in the right breast, unspecified quadrant (principal); N63.20 Unspecified lump in the left breast, unspecified quadrant; Z80.3 Family history of malignant neoplasm of breast | CPT/HCPCS: 99212 ==

== ENCOUNTER 2023-10-21 14:47 | Outpatient (AMB) | payer MEDICAID, SELFPAY ==
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
--- NOTE | 2023-10-21 15:06 | AM.OFFVISNUR ---
Intake Vital Signs 10/21/23 15:07 Height 5 ft 4 in Weight 99.564 kg BMI 37.7 Intake Visit Reasons: DEPO Allergies pineapple Allergy (Verified 08/05/23 14:50) Itching cockroach Allergy (Mild, Uncoded 08/05/23 14:50) itchy dust mites Allergy (Mild, Uncoded 08/05/23 14:50) Swelling grass Allergy (Mild, Uncoded 08/05/23 14:50) Itching mouse Allergy (Mild, Uncoded 08/05/23 14:50) itchy tree Allergy (Mild, Uncoded 08/05/23 14:50) itchy Office Procedures Depo Questionnaire If YES to any of the following questions, please consult a provider. Date of last injection: 07/29/23 Date of last gynecology exam: 02/01/23 Menstrual pattern since last injection has been: Not Applicable Irregular bleeding?: No Breast lumps or other breast changes?: No Changes in weight or appetite?: Yes (Pt does not contribute to Depo-Provera) Depression or changes in mood?: No Abnormal hair growth or loss?: No Skin problems (rash, acne, discoloration)?: No Pain at the injection site?: No Headaches?: No Nervousness?: No Abdominal pain or cramping?: No Dizziness or nausea?: No Fatigue or weakness?: No Decrease in sexual drive?: No Chest pain or shortness of breath?: Yes (Pt reports increased stressors in her life, and does not contribute occ Chest discomfort to Depo-Provera) Swelling in arms or legs?: No Any other problems or concerns?: just what is noted. Pt as PCP appt in a few weeks. Form completed by?: Ashwin Lane LPN Office Meds Depo-Provera 150 mg/mL intramuscular syringe Performing Provider: Ara Nunez CNM Performing Location: [facility] [place] [facility] Administered by: Jeanette Lane LPN on 10/21/23 15:07 Dose Route Admin Location Dispensed Lot Number Expiration Date [facility] Mrb Engineer 150 mg IM left deltoid 1 mL [id number] 07/10/25 25482-014-41 MYLAN Coding Level of Care Code Established Pt Est Pt Level 1 (74489) Patient Type Established History Problem Focused Exam Problem Focused Medical Decision Making Straight Forward Time Spent (min) 20 Assessment & Plan Assessment & Plan Orders: Orders AMB Medroxyprogesterone Injection Patient Supplied Today Z30.42 - Encounter for surveillance of injectable contraceptive
[2023-10-21 15:07] VITALS: BMI 37.7
--- NOTE | 2023-10-25 11:56 | AM.OFFVISNUR ---
Intake Vital Signs 10/21/23 15:07 Height 5 ft 4 in Weight 99.564 kg BMI 37.7 Intake Visit Reasons: DEPO Allergies pineapple Allergy (Verified 08/05/23 14:50) Itching cockroach Allergy (Mild, Uncoded 08/05/23 14:50) itchy dust mites Allergy (Mild, Uncoded 08/05/23 14:50) Swelling grass Allergy (Mild, Uncoded 08/05/23 14:50) Itching mouse Allergy (Mild, Uncoded 08/05/23 14:50) itchy tree Allergy (Mild, Uncoded 08/05/23 14:50) itchy Office Procedures Depo Questionnaire If YES to any of the following questions, please consult a provider. Date of last injection: 07/29/23 Date of last gynecology exam: 02/01/23 Menstrual pattern since last injection has been: Not Applicable Irregular bleeding?: No Breast lumps or other breast changes?: No Changes in weight or appetite?: Yes (Pt does not contribute to Depo-Provera) Depression or changes in mood?: No Abnormal hair growth or loss?: No Skin problems (rash, acne, discoloration)?: No Pain at the injection site?: No Headaches?: No Nervousness?: No Abdominal pain or cramping?: No Dizziness or nausea?: No Fatigue or weakness?: No Decrease in sexual drive?: No Chest pain or shortness of breath?: Yes (Pt reports increased stressors in her life, and does not contribute occ Chest discomfort to Depo-Provera) Swelling in arms or legs?: No Any other problems or concerns?: just what is noted. Pt as PCP appt in a few weeks. Form completed by?: Ashwin Lane LPN Office Meds Depo-Provera 150 mg/mL intramuscular syringe Performing Provider: Ara Nunez CNM Performing Location: [facility] [place] [facility] Administered by: Jeanette Lane LPN on 10/21/23 15:07 Dose Route Admin Location Dispensed Lot Number Expiration Date [facility] Diesel Machinist 150 mg IM left deltoid 1 mL [id number] 07/10/25 56179-895-04 MYLAN Coding Assessment & Plan Assessment & Plan Orders: Orders AMB Medroxyprogesterone Injection Patient Supplied 10/21/23 Z30.42 - Encounter for surveillance of injectable contraceptive
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
--- NOTE | 2023-10-27 14:44 | AM.OFFVISNUR ---
Intake Vital Signs 10/21/23 15:07 10/27/23 14:44 Height 5 ft 4 in Weight 99.564 kg BMI 37.7 37.7 Intake Visit Reasons: DEPO Allergies pineapple Allergy (Verified 08/05/23 14:50) Itching cockroach Allergy (Mild, Uncoded 08/05/23 14:50) itchy dust mites Allergy (Mild, Uncoded 08/05/23 14:50) Swelling grass Allergy (Mild, Uncoded 08/05/23 14:50) Itching mouse Allergy (Mild, Uncoded 08/05/23 14:50) itchy tree Allergy (Mild, Uncoded 08/05/23 14:50) itchy Nursing Note Odalis was here for her scheduled Depo-Provera inj.. She will follow up in 12 wks for next injection in 12 weeks. Office Procedures Depo Questionnaire If YES to any of the following questions, please consult a provider. Date of last injection: 07/29/23 Date of last gynecology exam: 02/01/23 Menstrual pattern since last injection has been: Not Applicable Irregular bleeding?: No Breast lumps or other breast changes?: No Changes in weight or appetite?: Yes (Pt does not contribute to Depo-Provera) Depression or changes in mood?: No Abnormal hair growth or loss?: No Skin problems (rash, acne, discoloration)?: No Pain at the injection site?: No Headaches?: No Nervousness?: No Abdominal pain or cramping?: No Dizziness or nausea?: No Fatigue or weakness?: No Decrease in sexual drive?: No Chest pain or shortness of breath?: Yes (Pt reports increased stressors in her life, and does not contribute occ Chest discomfort to Depo-Provera) Swelling in arms or legs?: No Any other problems or concerns?: just what is noted. Pt as PCP appt in a few weeks. Form completed by?: Ashwin Lane LPN Office Meds Depo-Provera 150 mg/mL intramuscular syringe Performing Provider: Ara Nunez CNM Performing Location: [facility] [place] [facility] Administered by: Jeanette Lane LPN on 10/21/23 15:07 Dose Route Admin Location Dispensed Lot Number Expiration Date [facility] Sales Representative Leather Goods 150 mg IM left deltoid 1 mL [id number] 07/10/25 72207-980-82 MARGARITALAN Coding Level of Care Code Established Pt Est Pt Level 1 (42105) Patient Type Established History Problem Focused Exam Problem Focused Medical Decision Making Straight Forward Time Spent (min) 15 Assessment & Plan Assessment & Plan Orders: Orders AMB Medroxyprogesterone Injection Patient Supplied 10/21/23 Z30.42 - Encounter for surveillance of injectable contraceptive
--- NOTE | 2023-10-27 14:49 | AM.OFFVISNUR ---
Intake Vital Signs 10/21/23 15:07 Height 5 ft 4 in Weight 99.564 kg BMI 37.7 Intake Visit Reasons: DEPO Allergies pineapple Allergy (Verified 08/05/23 14:50) Itching cockroach Allergy (Mild, Uncoded 08/05/23 14:50) itchy dust mites Allergy (Mild, Uncoded 08/05/23 14:50) Swelling grass Allergy (Mild, Uncoded 08/05/23 14:50) Itching mouse Allergy (Mild, Uncoded 08/05/23 14:50) itchy tree Allergy (Mild, Uncoded 08/05/23 14:50) itchy Nursing Note Odalis was here today for her scheduled Depo-Provera inj. She has no complaints. follow up in 12 wks for next injection. Office Procedures Depo Questionnaire If YES to any of the following questions, please consult a provider. Date of last injection: 07/29/23 Date of last gynecology exam: 02/01/23 Menstrual pattern since last injection has been: Not Applicable Irregular bleeding?: No Breast lumps or other breast changes?: No Changes in weight or appetite?: Yes (Pt does not contribute to Depo-Provera) Depression or changes in mood?: No Abnormal hair growth or loss?: No Skin problems (rash, acne, discoloration)?: No Pain at the injection site?: No Headaches?: No Nervousness?: No Abdominal pain or cramping?: No Dizziness or nausea?: No Fatigue or weakness?: No Decrease in sexual drive?: No Chest pain or shortness of breath?: Yes (Pt reports increased stressors in her life, and does not contribute occ Chest discomfort to Depo-Provera) Swelling in arms or legs?: No Any other problems or concerns?: just what is noted. Pt as PCP appt in a few weeks. Form completed by?: Ashwin Lane LPN Office Meds Depo-Provera 150 mg/mL intramuscular syringe Performing Provider: Ara Nunez CNM [place] [facility] [place] [facility] Administered by: Jeanette Lane LPN on 10/21/23 15:07 Dose Route Admin Location Dispensed Lot Number Expiration Date [facility] Cop Breaker 150 mg IM left deltoid 1 mL [id number] 07/10/25 70900-962-05 CLAIRE Coding Assessment & Plan Assessment & Plan Orders: Orders AMB Medroxyprogesterone Injection Patient Supplied 10/21/23 Z30.42 - Encounter for surveillance of injectable contraceptive
== END 2023-10-21 15:05 | disposition home or self-care (01) ==
LOC: HO.HWS 14:47
PROVIDERS: PCP Internal Medicine; Visit Provider Advanced Practice Midwife
DX: Z30.42 Encounter for surveillance of injectable contraceptive (principal)

== ENCOUNTER → 2023-10-21 14:47 | Outpatient (BNVA) | payer MEDICAID, SELFPAY | PROVIDERS: PCP Internal Medicine; Visit Provider Advanced Practice Midwife | DX: Z30.42 Encounter for surveillance of injectable contraceptive (principal) | CPT/HCPCS: 96372; 99211; J1050 ==

== ENCOUNTER 2023-10-27 09:54 | Outpatient (REF) | payer MEDICAID, SELFPAY ==
[2023-10-27 11:26] LABS: MANUAL DIFF FLAG NO
[2023-10-27 11:37] LABS: Basophils Percent Auto 0.4 % (0-2); Eosinophils Absolute Auto 0.1 X10*3/uL (0.0-0.4); Eosinophils Percent Auto 1.3 % (0-4); Hematocrit 45.7 % (37.0-47.0); Hemoglobin 15.5 g/dl (12.0-16.0); Imm Gran Abs Auto 0.02 X10*3/uL (0.00-0.03); Imm Gran Pct Auto 0.2 % (0.0-0.4); Lymphocytes Absolute Auto 2.7 X10*3/uL (1.2-4.9); Lymphocytes Percent Auto 28.9 % (20-40); Mean Corpuscular HGB Conc 33.9 g/dl (31.0-35.0); Mean Corpuscular Hemoglobin 28.9 pg (27.0-33.0); Mean Corpuscular Volume 85.1 fL (80.0-98.0); Mean Platelet Volume 9.7 fL (9.4-12.3); Monocytes Absolute Auto 0.6 X10*3/uL (0.1-1.2); Monocytes Percent Auto 6.1 % (2-11); Neutrophils Absolute Auto 5.9 x10*3/uL (2.0-8.3); Neutrophils Percent Auto 63.1 % (45-73); Platelet Count 408 X10*3/uL (160-400); Red Blood Count 5.37 X10*6/uL (4.20-5.50); Red Cell Distribution Width 12.1 % (11.0-16.0); White Blood Count 9.4 X10*3/uL (4.8-10.8)
[2023-10-27 11:54] LABS: Cholesterol 197 mg/dL (<200); HDL Cholesterol 39 mg/dL (>40); Iron 64 mcg/dL (30-160); LDL Cholesterol Calculated 130 mg/dL (<100); Percent Iron Saturation 21 % (15-50); Total Iron Binding Capacity 307 mcg/dL (228-428); Triglycerides 143 mg/dL (<150); Unsaturated Iron Binding 243 ug/dL
[2023-10-27 12:17] LABS: Ferritin 123 ng/mL (10-122)
== END 2023-10-27 09:55 | disposition home or self-care (01) ==
LOC: HO.HHCL 09:54
PROVIDERS: Visit Provider Registered Nurse
DX: Z00.00 Encounter for general adult medical examination without abnormal findings (principal); D50.9 Iron deficiency anemia, unspecified
CPT/HCPCS: 36415; 80061; 82728; 83540; 85025

== ENCOUNTER 2024-01-10 15:08 | Outpatient (AMB) | payer MEDICAID, SELFPAY ==
[2024-01-10 15:40] VITALS: BMI 38.2
--- NOTE | 2024-01-10 15:40 | AM.OFFVISNUR ---
Intake Vital Signs 01/10/24 15:40 Height 5 ft 4 in Weight 222 lb 8 oz BMI 38.2 Intake Visit Reasons: DEPO Core Winder Required: No Allergies pineapple Allergy (Verified 08/05/23 14:50) Itching cockroach Allergy (Mild, Uncoded 08/05/23 14:50) itchy dust mites Allergy (Mild, Uncoded 08/05/23 14:50) Swelling grass Allergy (Mild, Uncoded 08/05/23 14:50) Itching mouse Allergy (Mild, Uncoded 08/05/23 14:50) itchy tree Allergy (Mild, Uncoded 08/05/23 14:50) itchy Is last menstrual period known: No Post menopausal: No Patient : No Do you need a note to return to daycare/school/sports/work: No Nursing Note Odalis is here for her scheduled Depo provera injection. She has noticed her weight is now 222.8 lbs. She has also noticed that over the last 2 months she has been having AUB. She has not had her period d/t Depo provera in a long time. About 2 months ago she started having bleeding, anywhere from spotting to a gush of blood. The bleeding would last for ~a day then be gone, then come again. She reports multiple days per month like this without pain. Between the weight gain and the AUB she is rethinking her choice to use Depo provera for BC. Pt was advised to schedule a problem visit with provider for evaluation. Pt verbalizes understanding and agrees with plan. She will schedule a problem visit today as well as her next Depo injection in 12 weeks. Pt did have her Depo injection today and tolerated well. Office Procedures Depo Questionnaire If YES to any of the following questions, please consult a provider. Date of last injection: 10/21/23 Date of last gynecology exam: 02/01/23 Menstrual pattern since last injection has been: Not Applicable Irregular bleeding?: Yes Breast lumps or other breast changes?: No Changes in weight or appetite?: Yes Depression or changes in mood?: No Abnormal hair growth or loss?: No Skin problems (rash, acne, discoloration)?: No Pain at the injection site?: No Headaches?: No Nervousness?: No Abdominal pain or cramping?: No Dizziness or nausea?: No Fatigue or weakness?: No Decrease in sexual drive?: No Chest pain or shortness of breath?: No Swelling in arms or legs?: No Form completed by?: Soo Aviles tool chaser Meds Depo-Provera 150 mg/mL intramuscular syringe Performing Provider: Ara Nunez CNM Performing Location: [facility] [place] [facility] Administered by: Soo Aviles on 01/10/24 15:57 Dose Route Admin Location Dispensed Lot Number Expiration Date [facility] Pottery Decoration Designer 150 mg IM Right deltoid 1 mL [id number] 07/10/25 35505-613-95 MYLAN Coding Level of Care Code Established Pt Est Pt Level 1 (73139) Patient Type Established History Problem Focused Medical Decision Making Straight Forward Time Spent (min) 22 Assessment & Plan Assessment & Plan Orders: Orders AMB Medroxyprogesterone Injection Patient Supplied Today Z30.42 - Encounter for surveillance of injectable contraceptive
== END 2024-01-10 15:34 | disposition home or self-care (01) ==
LOC: HO.HWS 15:08
PROVIDERS: PCP Internal Medicine; Visit Provider Advanced Practice Midwife
DX: Z30.42 Encounter for surveillance of injectable contraceptive (principal)

== ENCOUNTER → 2024-01-10 15:08 | Outpatient (BNVA) | payer MEDICAID, SELFPAY | PROVIDERS: PCP Internal Medicine; Visit Provider Advanced Practice Midwife | DX: Z30.42 Encounter for surveillance of injectable contraceptive (principal) | CPT/HCPCS: 96372; 99211; J1050 ==

== ENCOUNTER 2024-01-11 13:39 | Outpatient (REF) | payer MEDICAID, SELFPAY ==
[2024-01-11 14:57] LABS: Hematocrit 43.3 % (37.0-47.0); Hemoglobin 14.8 g/dl (12.0-16.0); Mean Corpuscular HGB Conc 34.2 g/dl (31.0-35.0); Mean Corpuscular Hemoglobin 29.1 pg (27.0-33.0); Mean Corpuscular Volume 85.1 fL (80.0-98.0); Mean Platelet Volume 9.2 fL (9.4-12.3); Platelet Count 435 X10*3/uL (160-400); Red Blood Count 5.09 X10*6/uL (4.20-5.50); Red Cell Distribution Width 12.1 % (11.0-16.0); White Blood Count 14.9 X10*3/uL (4.8-10.8)
[2024-01-11 15:53] LABS: Thyroid Stimulating Hormone 0.93 uIU/mL (0.32-4.0)
[2024-01-12 03:07] LABS: CT PCR NOT DETECTED (Not Detect.); NG PCR NOT DETECTED (Not Detect.)
[2024-01-12 13:08] LABS: BV Int Neg Control Negative (Negative); BV Int Pos Control Positive (Positive)
== END 2024-01-11 13:40 | disposition home or self-care (01) ==
LOC: HO.LAB 13:39
PROVIDERS: PCP Internal Medicine; Visit Provider Advanced Practice Midwife
DX: N92.1 Excessive and frequent menstruation with irregular cycle (principal); Z32.02 Encounter for pregnancy test, result negative
CPT/HCPCS: 0353U; 81025; 84443; 85027; 87480; 87510; 87660; 99212

== ENCOUNTER 2024-01-11 13:39 | Outpatient (AMB) | payer MEDICAID, SELFPAY ==
[2024-01-11 13:43] VITALS: BP 124/88; BMI 38.1
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
== END 2024-01-11 14:32 | disposition home or self-care (01) ==
PROVIDERS: PCP Internal Medicine; Visit Provider Advanced Practice Midwife
DX: N92.1 Excessive and frequent menstruation with irregular cycle (principal)
CPT/HCPCS: 99214

== ENCOUNTER 2024-01-11 14:11 | Outpatient (REF) | payer MEDICAID, SELFPAY | END 2024-01-11 14:12 | disposition home or self-care (01) | LOC: HO.LNP 14:11 | PROVIDERS: Visit Provider Advanced Practice Midwife | DX: Z13.89 Encounter for screening for other disorder (principal) ==

== ENCOUNTER 2024-01-17 15:28 | Outpatient (REF) | payer MEDICAID, SELFPAY ==
--- NOTE | ~2024-01-17 | US_ITS ---
EXAMINATION: US PELVIS CLINICAL INFORMATION: Excessive and frequent menstruation with irregular cycle COMPARISON: Previous CT of the abdomen and pelvis August 2018 and pelvic ultrasound 2011 TECHNIQUE: Transabdominal pelvic ultrasound. Patient refused transvaginal exam. FINDINGS: Uterus is anteverted and measures 8.5 x 3.9 x 5.8 cm in dimension. No focal uterine lesion. Endometrial thickness is normal measuring 0.4 cm. There is an echogenic focus in the endometrial cavity with vascularity measuring 3 x 2 x 3 mm. Appearance is questionable for possible polyp. The ovaries are normal. The right ovary measures 3.8 x 2 x 2.2 cm. The left ovary measures 3.6 x 1.6 x 2.8 cm. There is no fluid in the pelvis. US/US pelvic complete IMPRESSION: Small 3 mm echogenic focus in the endometrium questionable for a small polyp. Otherwise unremarkable exam. Short-term follow-up pelvic ultrasound could be performed to see if this is a persistent finding. Alternatively this could be evaluated with sonohysterogram.
== END 2024-01-17 15:29 | disposition home or self-care (01) ==
LOC: HO.US 15:28
PROVIDERS: PCP Internal Medicine; Visit Provider Advanced Practice Midwife
DX: N92.1 Excessive and frequent menstruation with irregular cycle (principal)
CPT/HCPCS: 76856

== ENCOUNTER 2024-01-19 15:04 | Outpatient (AMB) | payer MEDICAID, SELFPAY ==
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
== END 2024-01-19 15:25 | disposition home or self-care (01) ==
LOC: HO.HWS 15:04
PROVIDERS: PCP Internal Medicine; Visit Provider Advanced Practice Midwife
DX: Z71.2 Person consulting for explanation of examination or test findings (principal); N84.0 Polyp of corpus uteri
CPT/HCPCS: 99213

== ENCOUNTER → 2024-01-19 15:04 | Outpatient (BNVA) | payer MEDICAID, SELFPAY | PROVIDERS: PCP Internal Medicine; Visit Provider Advanced Practice Midwife ==

== ENCOUNTER 2024-02-17 07:31 | Outpatient (AMB) | payer MEDICAID, SELFPAY ==
[2024-02-17 07:32] VITALS: BP 120/72; BMI 37.8
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
== END 2024-02-17 08:46 | disposition home or self-care (01) ==
LOC: HO.HWS 07:31
PROVIDERS: PCP Internal Medicine; Visit Provider Obstetrics & Gynecology
DX: N93.9 Abnormal uterine and vaginal bleeding, unspecified (principal)
CPT/HCPCS: 99213

== ENCOUNTER → 2024-02-17 07:31 | Outpatient (BNVA) | payer MEDICAID, SELFPAY | PROVIDERS: PCP Internal Medicine; Visit Provider Obstetrics & Gynecology | DX: N93.9 Abnormal uterine and vaginal bleeding, unspecified (principal) | CPT/HCPCS: 99212 ==

== ENCOUNTER 2024-02-22 15:00 | Outpatient (AMB) | payer MEDICAID, SELFPAY ==
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
[2024-02-22 15:07] VITALS: BP 141/84; PULSE 101; BMI 37.8
== END 2024-02-22 15:54 | disposition home or self-care (01) ==
PROVIDERS: PCP Internal Medicine; Visit Provider Surgery
DX: N63.10 Unspecified lump in the right breast, unspecified quadrant (principal); N63.20 Unspecified lump in the left breast, unspecified quadrant; Z80.3 Family history of malignant neoplasm of breast
CPT/HCPCS: 99213

== ENCOUNTER → 2024-02-22 15:00 | Outpatient (BNVA) | payer MEDICAID, SELFPAY | PROVIDERS: PCP Internal Medicine; Visit Provider Surgery | DX: N63.10 Unspecified lump in the right breast, unspecified quadrant (principal); N63.20 Unspecified lump in the left breast, unspecified quadrant; Z80.3 Family history of malignant neoplasm of breast | CPT/HCPCS: 99212 ==

== ENCOUNTER 2024-02-28 11:04 | Day surgery (SDC) | payer MEDICAID, SELFPAY ==
[2024-02-24 14:00] VITALS: BMI 37.8
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
[2024-02-28 11:32] VITALS: BP 145/89; PULSE 100; RESP 18; TEMP 36.3; O2SAT 98
[2024-02-28 11:43] LABS: UPreg QC Valid YES; Urine Pregnancy NEGATIVE (NEGATIVE)
[2024-02-28] MEDS: Lactated Ringers 1,000 ML 100 ML IVCONT (12:21)
--- NOTE | 2024-02-28 12:46 | MHC.SHP ---
Pre-Procedural Eval Section A - 24 Hr Update-Section A only Date of Service: 02/28/24 The patient is an INPATIENT: No Changes since office visit: No Cold of Flu in the past 2 weeks, No New Medical Problems, No Changes in Medication and No Patient answered all questions The patient has been examined within 24 hours of the surgical procedure. The History & Physical has been completed within 30 days and I have reviewed it.: Yes Section B - Complete if H&P > 30 days Chief Complaint: Abnormal uterine and vaginal bleeding, unspecified Allergies: Allergies Allergy/AdvReac Type Severity Reaction Status Date / Time pineapple Allergy Intermediate Itching Verified 02/24/24 13:57 kiwi Allergy Unknown Unknown Verified 02/17/24 07:35 cockroach Allergy Mild itchy Uncoded 02/17/24 07:35 dust mites Allergy Mild Swelling Uncoded 02/17/24 07:35 grass Allergy Mild Itching Uncoded 02/17/24 07:35 mouse Allergy Mild itchy Uncoded 02/17/24 07:35 tree Allergy Mild itchy Uncoded 02/17/24 07:35 Plan Diagnosis/Plan: Unchanged I have reviewed the history and physical and performed a pertinent physical examination on my patient. No changes have occurred unless specified. Time Spent With Patient Time: Total time managing care of this patient today ____ minutes.
--- NOTE | 2024-02-28 13:48 | P.BOP_ITS ---
Brief Operative Note Date of Service: 02/28/24 Pre-op diagnosis: Abnormal uterine bleeding, endometrial polyp by EMB pathology Post-op diagnosis: same (Normal endometrial cavity, no evidence of pathology) Procedure: Hysteroscopy D&C, Polypectomy Surgeon: Stevie Herrera MD Anesthesia: GLMA Was an Enrollment Management Director used for this Procedure?: No Estimated blood loss (mL): 0 Pathology: other (Endometrial Scrapping.) Condition: stable Disposition: PACU
--- NOTE | 2024-02-28 13:49 | P.OP_ITS ---
Operative Note Operative Note Date of Service: 02/28/24 Narrative: Preop Diagnosis: Abnormal uterine bleeding, endometrial polyp on EMB pathology Operation: Diagnostic Hysteroscopy, Dilataion & Curettage Post Op Diagnosis: Normal endometrial and endocervical cavity, no evidence of pathology QBL: Minimal Anesthesia: GLMA Surgeon: Stevie Herrera MD Channel Sales Manager: None Complication: None Pathology: Endometrial Scrapings Procedure: The patient was put in the dorsal lithotomy position, scrubbed, and draped in the usual manner. A sterile speculum was inserted in the patient's vagina. The anterior lip of the cervix was grasped with a single tooth tenaculum. The cervix was dilated up to 5 mm, then the scope was inserted in the patient's uterus. Inspection revealed normal endocervical & endometrial cavity with no evidence of pathology. The scope was taken out of the uterine cavity , then sharp curetting was carried on with no complications. At the end of the procedure, all instruments were taken out of the patient uterine and vaginal cavity. The single tooth tenaculum was removed and homeostasis was assured using pressure. The patient tolerated the procedure well and was transferred to the PACU in a stable condition.
[2024-02-28 13:55] VITALS: BP 150/89; PULSE 86; RESP 16; TEMP 36.4; O2SAT 99
[2024-02-28 14:00] VITALS: BP 127/87; PULSE 70; RESP 16; O2SAT 100
[2024-02-28 14:05] VITALS: BP 151/90; PULSE 88; RESP 16; O2SAT 100
[2024-02-28 14:10] VITALS: BP 148/84; PULSE 77; RESP 16; O2SAT 98
[2024-02-28 14:25] VITALS: BP 148/84; PULSE 69; RESP 16; TEMP 36.4; O2SAT 98
== END 2024-02-28 14:57 | disposition home or self-care (01) ==
PROVIDERS: PCP Registered Nurse; Visit Provider Obstetrics & Gynecology
PROC: 0UDB8ZZ Extraction of Endometrium, Via Natural or Artificial Opening Endoscopic (ICD-10-PCS; CPT 58558; principal; 2024-02-28 13:00)
DX: N93.9 Abnormal uterine and vaginal bleeding, unspecified (principal); E04.1 Nontoxic single thyroid nodule; F32.A Depression, unspecified; Z87.59 Personal history of other complications of pregnancy, childbirth and the puerperium; Z87.891 Personal history of nicotine dependence
CPT/HCPCS: 58558; 81025; 88305; J1100; J1885; J2405; J2704; J3010

== ENCOUNTER → 2024-02-28 11:04 | Outpatient (BNV) | payer MEDICAID, SELFPAY | PROVIDERS: PCP Registered Nurse; Visit Provider Obstetrics & Gynecology | DX: N84.0 Polyp of corpus uteri (principal); N93.9 Abnormal uterine and vaginal bleeding, unspecified | CPT/HCPCS: 58558 ==

== ENCOUNTER 2024-03-30 10:45 | Outpatient (AMB) | payer MEDICAID, SELFPAY ==
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
[2024-03-30 10:52] VITALS: BP 124/80; BMI 37.8
== END 2024-03-30 11:14 | disposition home or self-care (01) ==
PROVIDERS: PCP Internal Medicine; Referring Provider Internal Medicine; Visit Provider Obstetrics & Gynecology
DX: N93.9 Abnormal uterine and vaginal bleeding, unspecified (principal); Z30.42 Encounter for surveillance of injectable contraceptive
CPT/HCPCS: 99213

== ENCOUNTER → 2024-03-30 10:45 | Outpatient (BNVA) | payer MEDICAID, SELFPAY | PROVIDERS: PCP Internal Medicine; Visit Provider Obstetrics & Gynecology | DX: Z30.42 Encounter for surveillance of injectable contraceptive (principal); N93.9 Abnormal uterine and vaginal bleeding, unspecified | CPT/HCPCS: 96372; 99212; J1050 ==

== ENCOUNTER 2024-06-14 10:34 | Outpatient (REF) | payer MEDICAID, SELFPAY ==
[2024-06-14 13:10] LABS: MANUAL DIFF FLAG NO
[2024-06-14 13:31] LABS: Basophils Absolute Auto 0.1 X10*3/uL (0.0-0.2); Basophils Percent Auto 0.6 % (0-2); Eosinophils Absolute Auto 0.2 X10*3/uL (0.0-0.4); Eosinophils Percent Auto 1.8 % (0-4); Hematocrit 43.3 % (37.0-47.0); Hemoglobin 14.8 g/dl (12.0-16.0); Imm Gran Abs Auto 0.04 X10*3/uL (0.00-0.03); Imm Gran Pct Auto 0.4 % (0.0-0.4); Lymphocytes Absolute Auto 3.3 X10*3/uL (1.2-4.9); Mean Corpuscular HGB Conc 34.2 g/dl (31.0-35.0); Mean Corpuscular Hemoglobin 29.2 pg (27.0-33.0); Mean Corpuscular Volume 85.6 fL (80.0-98.0); Mean Platelet Volume 9.9 fL (9.4-12.3); Monocytes Absolute Auto 0.5 X10*3/uL (0.1-1.2); Neutrophils Absolute Auto 6.7 x10*3/uL (2.0-8.3); Neutrophils Percent Auto 62.2 % (45-73); Platelet Count 414 X10*3/uL (160-400); Red Blood Count 5.06 X10*6/uL (4.20-5.50); Red Cell Distribution Width 12.2 % (11.0-16.0); White Blood Count 10.8 X10*3/uL (4.8-10.8)
[2024-06-14 13:35] LABS: Estimated Average Glucose 108 mg/dL; Hemoglobin A1c % 5.4 % (<6.0)
[2024-06-14 13:56] LABS: Alanine Aminotransferase 18 U/L (0-31); Albumin Level 4.3 g/dL (3.5-5.0); Alkaline Phosphatase 98 U/L (39-117); Anion Gap 11 (12-20); Aspartate Amino Transferase 19 U/L (5-31); Bilirubin Total 0.3 mg/dL (0.0-1.0); Blood Urea Nitrogen 7 mg/dL (9-16); Calcium 9.5 mg/dL (8.4-10.2); Carbon Dioxide 27 mmol/L (22-29); Chloride 105 mmol/L (96-108); Cholesterol 193 mg/dL (<200); Estimated Glomerular Filt Rate > 60; Glucose Random 121 mg/dL (60-115); HDL Cholesterol 40 mg/dL (>40); Iron 53 mcg/dL (30-160); LDL Cholesterol Calculated 127 mg/dL (<100); Percent Iron Saturation 18 % (15-50); Sodium 139 mmol/L (135-145); Total Iron Binding Capacity 294 mcg/dL (228-428); Total Protein 7.5 g/dL (6.5-8.0); Triglycerides 132 mg/dL (<150); Unsaturated Iron Binding 241 ug/dL
[2024-06-14 13:58] LABS: HIV AB/AG Nonreactive (Nonreactive); HIV Num 1 0.05 S/CO (0.00-0.99)
[2024-06-14 14:02] LABS: Ferritin 117 ng/mL (10-122); TSH reflex Free T4 0.72 uIU/mL (0.32-4.0)
[2024-06-14 14:51] LABS: CT PCR NOT DETECTED (Not Detect.); NG PCR NOT DETECTED (Not Detect.)
[2024-06-16 09:48] LABS: RPR Rapid Plasma Reagin NON-REACTIVE (NON-REACTIVE)
[2024-06-16 15:38] LABS: HCV Log PCR <1.18 NOT DETECTED Log IU/mL (NOT DETECTED); HepC Viral Load <15 NOT DETECTED IU/mL (NOT DETECTED)
[2024-06-17 11:32] LABS: TS Negative Control Passed; TS Panel A 0; TS Panel B 0; TS Positive Control Passed; TSpotTB Negative (Negative)
== END 2024-06-14 10:35 | disposition home or self-care (01) ==
LOC: HO.HHCL 10:34
PROVIDERS: Visit Provider Registered Nurse
DX: Z00.00 Encounter for general adult medical examination without abnormal findings (principal)
CPT/HCPCS: 36415; 80053; 80061; 82728; 83036; 83540; 84443; 85025; 86481; 86592; 87389; 87491; 87522; 87591

== ENCOUNTER 2024-06-15 14:46 | Outpatient (AMB) | payer MEDICAID, SELFPAY ==
[2024-06-15 15:11] VITALS: BMI 39.2
--- NOTE | 2024-06-15 15:11 | AM.OFFVISNUR ---
Vital Signs 06/15/24 15:11 Height 5 ft 4 in Weight 228 lb 9 oz BMI 39.2 Intake Visit Reasons: Depo Thermostat Repairer Required: No Allergies pineapple Allergy (Intermediate, Verified 03/30/24 10:53) Itching kiwi Allergy (Unknown, Verified 03/30/24 10:53) Unknown cockroach Allergy (Mild, Uncoded 03/30/24 10:53) itchy dust mites Allergy (Mild, Uncoded 03/30/24 10:53) Swelling grass Allergy (Mild, Uncoded 03/30/24 10:53) Itching mouse Allergy (Mild, Uncoded 03/30/24 10:53) itchy tree Allergy (Mild, Uncoded 03/30/24 10:53) itchy Is last menstrual period known: No Post menopausal: No Patient : No Nursing Note Odalis is here for her scheduled Depo provera injection. She is concerned about weight gain. Last depo injection pt weighed 220 lbs and today 228.8 lbs. She is trying to increase her water intake and exercise. She is also considering an appt, with a impregnator helper to help with her diet. No other c/o, no new medications or new medical problems. Pt tolerated injection well. She will schedule her next injection in 12 weeks. Odalis was reminded she needs to come in for her yearly AG. She has an appt in September. Pt verbalizes understanding and agree with plan. No further questioons. Office Procedures Depo Questionnaire If YES to any of the following questions, please consult a provider. Date of last injection: 03/30/24 Date of last gynecology exam: 02/01/23 Menstrual pattern since last injection has been: Not Applicable Irregular bleeding?: No Breast lumps or other breast changes?: No Changes in weight or appetite?: Yes Depression or changes in mood?: No Abnormal hair growth or loss?: No Skin problems (rash, acne, discoloration)?: No Pain at the injection site?: No Headaches?: No Nervousness?: No Abdominal pain or cramping?: No Dizziness or nausea?: No Fatigue or weakness?: No Decrease in sexual drive?: No Chest pain or shortness of breath?: No Swelling in arms or legs?: No Form completed by?: Soo Aviles RN Office Meds Depo-Provera 150 mg/mL intramuscular syringe Performing Provider: Stevie Herrera MD Performing Location: [facility] Administered by: Soo Aviles on 06/15/24 15:16 Dose Route Admin Location Dispensed Lot Number Expiration Date [facility] Customizer 150 mg IM left deltoid 1 mL [id number] 08/10/25 87581-812-94 [employer] Assessment & Plan Assessment & Plan (1) Encounter for Depo-Provera contraception: Code(s): Z30.42 - Encounter for surveillance of injectable contraceptive Category: Medical Plan Pt will return in 12 weeks for next Depo injection. Orders: Orders AMB Medroxyprogesterone Injection Patient Supplied Today Z30.42 - Encounter for surveillance of injectable contraceptive Medications: New Depo-Provera (medroxyprogesterone) 150 mg IM ONCE 1 mL 0RF NS Z30.42 - Encounter for surveillance of injectable contraceptive
== END 2024-06-15 15:09 | disposition home or self-care (01) ==
LOC: HO.HWS 14:47
PROVIDERS: PCP Internal Medicine; Visit Provider Obstetrics & Gynecology
DX: Z30.42 Encounter for surveillance of injectable contraceptive (principal)

== ENCOUNTER → 2024-06-15 14:46 | Outpatient (BNVA) | payer MEDICAID, SELFPAY | PROVIDERS: PCP Internal Medicine; Visit Provider Obstetrics & Gynecology | DX: Z30.42 Encounter for surveillance of injectable contraceptive (principal) | CPT/HCPCS: 96372; 99211; J1050 ==

== ENCOUNTER 2024-06-29 17:50 | Outpatient (REF) | payer MEDICAID, SELFPAY ==
[2024-06-30 12:30] LABS: Adenovirus PCR Not Detected (Not Detect.); Bordetella parapertussis PCR Not Detected (Not Detect.); Bordetella pertussis PCR Not Detected (Not Detect.); Chlamydia pneumoniae PCR Not Detected (Not Detect.); Coronavirus 229E PCR Not Detected (Not Detect.); Coronavirus HKU1 PCR Not Detected (Not Detect.); Coronavirus NL63 PCR Not Detected (Not Detect.); Coronavirus OC43 PCR Not Detected (Not Detect.); Human metapneumovirus PCR Not Detected (Not Detect.); Influenza A PCR Not Detected (Not Detect.); Influenza B PCR Not Detected (Not Detect.); Mycoplasma pneumoniae PCR Not Detected (Not Detect.); Parainfluenza 1 PCR Detected (Not Detect.); Parainfluenza 2 PCR Not Detected (Not Detect.); Parainfluenza 3 PCR Not Detected (Not Detect.); Parainfluenza 4 PCR Not Detected (Not Detect.); RSV PCR Not Detected (Not Detect.); Rhino/Enterovirus PCR Detected (Not Detect.)
[2024-06-30 12:52] LABS: SARS-CoV-2 PCR Not Detected (Not Detect.)
== END 2024-06-29 17:51 | disposition home or self-care (01) ==
LOC: HO.HHCLNP 17:50
PROVIDERS: Visit Provider Student in an Organized Health Care Education/Training Program
DX: R05.9 Cough, unspecified (principal)
CPT/HCPCS: 87633

== ENCOUNTER 2024-09-14 07:35 | Outpatient (AMB) | payer OTHER, SELFPAY ==
[2024-09-14 07:33] VITALS: BP 118/80; BMI 84.4
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
== END 2024-09-14 08:30 | disposition home or self-care (01) ==
PROVIDERS: PCP Internal Medicine; Visit Provider Obstetrics & Gynecology
DX: Z01.419 Encounter for gynecological examination (general) (routine) without abnormal findings (principal); Z30.09 Encounter for other general counseling and advice on contraception; Z30.42 Encounter for surveillance of injectable contraceptive
CPT/HCPCS: 99395

== ENCOUNTER → 2024-09-14 07:35 | Outpatient (BNVA) | payer OTHER, SELFPAY | PROVIDERS: PCP Internal Medicine; Visit Provider Obstetrics & Gynecology | DX: Z01.419 Encounter for gynecological examination (general) (routine) without abnormal findings (principal); Z30.42 Encounter for surveillance of injectable contraceptive | CPT/HCPCS: 96372; 99395; J1050 ==

== ENCOUNTER 2024-12-12 07:58 | Outpatient (AMB) | payer OTHER, SELFPAY ==
[2024-12-12 07:59] VITALS: BP 134/92; BMI 40.0
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
--- OUTSIDE RECORDS SUMMARY | 2024-12-12 08:01 | XMS_ITS | Encounter Summary ---
Author Organization [employer] Address [address] [place] [address] Care Team Providers Care Decorating Kiln Operator Name Role Phone Winnie Almaraz Primary Care Provider [phone] Reason for Visit * Reason Onset Date Comments triage 09/14/2022 Encounter Details Date Type Department Care Team (Late st Contact Info) Description 09/14/2022 Telephone [facility] [address] [place] [address] Winnie Almaraz FNP [address] [place] [address] triage Social History Tobacco Use Types Packs/Day Years Used Date Smoking Tobacco: Never Assessed Comments Unknown Sex and Gender Information Value Date Recorded Sex Assigned at Female 08/10/2022 10:15 AM EDT Legal Sex Female 10:15 AM EDT Gender Identity Female 08/10/2022 10:15 AM EDT Sexual Orientation Straight 08/10/2022 10 :15 AM EDT COVID-19 Exposure Response Date Recorded In the last 10 days, have yo u been in contact with someone who was confirmed or suspected to have Coronavirus/COVID-19? No / Unsure 09/15/2022 10:55 AM EST documented as of this encounter Miscellaneous Notes * Telephone Encounter - Mel Rangel RN - 09/14/2022 3:01 PM EST Call returned, patient reports being exposed to Flu and COVID-19. Per pt having cough and yellow/green sputum. Per pt also having ST. Pt sx onset was yesterday. Exposed to Flu on Tuesday 09/11. Per pt home kit for COVID-19 was negative. OBGYN wants pt tested [facility] for flu and covid-19. Pt wants bookedappt. Agrees to sick visit tomorrow with blue team provider [facility] 09/15 at 11am. raheem jaimes. Protocol Used: COVID-19 - Diagnosed or Suspected (Adult) Protocol-Based Disposition: Discuss with PCP and Callback by Nurse within 1 Hour Video visit offer not recorded Positive Triage Question: * [1] HIGH RISK for severe COVID complications (e.g., weak immune system, age > 64 years, obesity with BMI of 30 or higher, , chronic lung disease or other chronic medical condition) AND [2] COVID symptoms (e.g., cough, fever) (Exceptions: Already seen by PCP and no new or worsening symptoms.) * All higher-acuity triage questions were negative Care Advice Discussed: * General Care Advice for COVID-19 Symptoms * Cough Medicines * Humidifier * Coughing Spells * Pain and Fever Medicines * Reasons To Call Back - Fever over 103 F (39.4 C) - Chest pain or difficulty breathing occurs - You become worse * Telephone Encounter - Margarito Lee - 09/14/2022 2:34 PM EST Symptom: COVID-19 Suspected pt is also Outcome: Schedule a same-day appointment or talk to a nurse or provider today Reason: No high acuity concerns reported by caller The caller accepted this outcome documented in this encounter Plan of Treatment Not on file documented as of this encounter Visit Diagnoses Not on filedocumented in this encounter Care Teams Decorating Kiln Operator Relationship Specialty Start Date End Date Winnie Almaraz FNP [address] [place] [id number] PCP - General Family Medicine 08/01/21 documented as of this encounter
--- OUTSIDE RECORDS SUMMARY | 2024-12-12 08:01 | XMS_ITS | Clinical Summary ---
Author Organization [employer] Address [address] [facility] [address] [place] [address] Care Team Providers Care Ground Instructor Advanced Name Role Phone Winnie Almaraz JULIAN Primary Care Provider [phone] Allergies Active Allergy Reactions Criticality Noted Date Comments Kiwi Extract Itching 09/12/2021 Other reaction(s): Throat irritation Pineapple Itching 06/03/2023 Pineapple Extract 09/12/2021 Other reaction(s): Throat irritation Medications Multiple Vitamin (Multi-Vitamin) tablet Take 1 tab by mouth daily 08/01/20 21 Active sertraline (Zoloft) 25 MG tablet Take 1 tablet (25 mg) by mouth Once daily. 90 tablet 06/03/20 23 Active medroxyPROGESTE Andrea (Depo-Provera) 150 MG/ML injectionIndica tions:Healthcar e maintenance TAKE TO DOCTOR'S OFFICE FOR ADMINISTRATION EVERY 3 MONTHS (EVERY 12 WEEKS) 01/10/20 24 Active albuterol (Ventolin HFA) 108 (90 Base) MCG/ACT inhaler Inhale 2 puffs Every 4-6 hours as needed for wheezing. 18 g 11 06/14/20 24 Active cetirizine (ZyrTEC) 10 MG tabletIndicatio ns:Seasonal allergies Take 1 tablet (10 mg) by mouth if needed at bedtime for allergies. 90 tablet 3 06/14/20 24 Active fluticasone (Flonase) 50 MCG/ACT nasal sprayIndication s:Seasonal allergies Shake gently. Before first use, prime pump. After use, clean tip and replace cap. INSTILL 1-2 SPRAYS IN EACH NOSTRIL ONCE DAILY IN THE MORNING 16 g 11 06/14/20 24 Active EPINEPHrine (Epipen) 0.3 MG/0.3ML injection syringe Inject 0.3 milliliter by intramuscular route once as needed for anaphylaxis. Inject into upper leg. Call 911 after use. 2 each 2 06/14/20 24 Active hydrOXYzine HCl (Atarax) 25 MG tablet TAKE 1 TABLET BY MOUTH ONCE DAILY NEEDED ANXIETY 06/15/20 Active Ketotifen Fumarate 0.035 % solutionIndicat ions:Seasonal allergies Administer 1 drop into both eyes if needed in the morning and at bedtime (allergies). 10 mL 11 09/13/20 24 Active acetaminophen (Tylenol) 500 MG tablet Take 1-2 tablets (500-1,000 mg) by mouth every 8 (eight) hours if needed for moderate pain or fever. 100 tablet 3 09/13/20 24 025 Active Active Problems Problem Noted Date Diagnosed Date Abnormal uterine bleeding 06/14/2024 Overview (06/14/2024): Following with [facility] OBGYN - Dr. Herrera 02/28/24: Diagnostic hysteroscopy, dilation & curettage d/t AUB, endometrial polyp on EMB. Path negative for atypia or hyperplasia. Normal uterine cavity. Seasonal allergies 06/09/2023 Overview (06/09/2023): Current med regimen includes: ?? Cetirizine 10mg nightly ?? Flonase PRN ?? Ketotifen eye drops PRN Healthcare maintenance 06/09/2023 Overview (06/14/2024): Pap: Last Jun 2022 normal, HPV neg. 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 Next due 05/11/26 Contraception: depo Assessment & Plan (10/31/2023 12:01 PM EST): Flu and COVID vaccines administered today Anxiety with depression 06/03/2023 Assessment & Plan (06/14/2024 10:34 AM EDT): Reports doing well overall, continues with combination of coping skills and pharmacotherapy Continues sertraline 25mg daily and hydroxyzine 10mg PRN (reports taking both PRN), prescribed by psych Denies SI/HI/thoughts of self harm Behavioral health: following with therapist Assessment & Plan (10/31/2023 12:02 PM EST): ?? Continues sertraline 25mg daily ?? Denies SI/HI/thoughts of self harm ?? Discussed possibility of PRN medication for acute anxiety such as hydroxyzine 10mg. Odalis will consider, and let us know if interested in prescription. ?? Behavioral health: following with therapist Assessment & Plan (06/09/2023 9:58 PM EDT): ?? Continues sertraline 25mg daily ?? Denies SI/HI/thoughts of self harm BMI 40.0-44.9, adult 06/03/2023 Assessment & Plan (09/14/2024 11:43 AM EST): Referred to [facility] Nutrition on 06/14/24, number provided to contact office to schedule appt Assessment & Plan (06/14/2024 10:31 AM EDT): Referred to [facility] Nutrition on 06/14/24 Follow up in 4-6 weeks as interested in discussing weight management Acanthosis nigricans 02/09/2019 Microcytic anemia 02/09/2019 Assessment & Plan (06/14/2024 10:33 AM EDT): Hx VICTOR M, reports received iron infusion during Last H/H 14.8/43.3 on 01/11/24 Prior H/H 10.6/33.8 in Nov 2022 Previously prescribed ferrous gluconate MWF, although not always taking consistently d/t GI SE Continues with OTC multivitamin Plan: repeat CBC, Iron studies ordered today Assessment & Plan (10/31/2023 12:00 PM EST): ?? Hx VICTOR M, reports received iron infusion during ?? Last H/H 14.3/41.7 on 03/09/23 ?? Prior H/H 10.6/33.8 in Nov 2022 ?? Previously prescribed ferrous gluconate MWF, although not always taking consistently d/t GI SE ?? Continues with multivitamin Plan: repeat CBC, Iron studies ordered today Assessment & Plan (06/09/2023 9:57 PM EDT): ?? Hx VICTOR M, reports received iron infusion during ?? Last H/H 14.3/41.7 on 03/09/23 ?? Prior H/H 10.6/33.8 in Nov 2022 ?? Previously prescribed ferrous gluconate MWF, although not always taking consistently d/t GI SE ?? Currently continues with multivitamin Assessment & Plan (03/08/2023 1:00 PM EDT): ?? Hx VICTOR M ?? Last H/H 10.6/33.8 in Nov 2022 ?? Previously prescribed ferrous gluconate MWF, although not always taking consistently d/t GI SE ?? Currently continues with multivitamin ?? Recheck CBC and iron studies. 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 VS only mild elevated BP and HR Today here Flu and COVID 19 are neg 06/14/2024 Tspot neg ,CBC mild thrombocytosis ,Chem wnl, STI checked neg -PCR sent as RVP and send kit from [facility] for pertussis cx -sent written requisition-The sensitivity of culture is highest during the first two weeks of illness. -will call pt w results -Px today azithromycin 500 mg today and then 1 tab daily for 5 days sent empirically -zofran prn -benzonatte not covered by insurance -pxed dextromethorphan PRN -Alarm signs and symptoms discussed w pt -Advised to use mask if close to others but given is higly contagious advised to isolate and will discuss w daughter hay farmer -to isolate for at least 5 days after completes tx w ATB-gave letter for work today -apt w PCP for 08/09/2024 scheduled already COVID-19 05/01/2024 06/14/2024 Assessment & Plan (05/01/2024 11:53 AM EDT): Drink plenty of fluids and rest Quarantine as per CDC guidelines Patient declines paxlovid If increase SOB, chest pain, confusion call EMS or go [facility] to ED Sinus tachycardia 05/01/2024 06/14/2024 Overview (05/01/2024): Patient is COVID positive likely fluid behind I advise to drink plenty of fluids and rest today Assessment & Plan (05/01/2024 11:55 AM EDT): Patient is COVID positive likely fluid behind I advise to drink plenty of fluids and rest today HR improve to 105 Severe obesity (BMI 35.0-39. 9) with comorbidity 06/03/2023 06/09/2023 Umbilical vein abnormality a ffecting 06/03/2023 10/31/2023 09/14/2022 03/01/2023 Overview (09/14/2022): Onset date per previous EHR 08/21/22, EDC noted on previous EHR as 12/14/22 Depression 02/09/2019 06/09/2023 Encounters Date Type Department Care Team Description 09/13/2024 10:30 AM EST Office Visit [facility] MED[facility]INE [address] [place] [address] [phone] Winnie Almaraz FNP Weight gain (Primary Dx); Seasonal allergies; Encounter for immunization; BMI 40.0-44.9, adult ([facility]) 09/13/2024 Travel from Last 3 Months Immunizations Name Administration Dates Next Due DTaP 04/20/1991, 9,02/13/1988,1987,1987 Hep B, Adolescent or Pediatric 11/24/1999,1998,04/21/1999 Hib (HbOC) 12/23/1989 IPV 04/02/1989, 8,1987,1986 Influenza injectable quadriv alent IIV4 with preservative 10/22/2017,08/28/2015 Influenza injectable quadriv alent preservative free 10/27/2023,08/21/2022,07/16/2021,2019,07/03/2019 Influenza, IIV3, injectable 08/21/2022,1 ,07/10/2020,2018,10/22/2017,08/28/2015 Influenza, seasonal, injecta ble, preservative free 09/13/2024 MMR 11/23/1990,08/27/1988 Pfizer Covid-19 Vaccine 12+ 09/13/2024, 4 Tdap 10/01/2022,07/16/2021,03/02/2011 Family History Medical History Relation Name Comments Diabetes Father Hypertension Father Coronary artery disease Maternal Grandmother Stroke Maternal Grandmother Breast cancer Mother's Sister Relation Name Status Comments Father Maternal Grandmother Mother's Sister Social History Tobacco Use Types Packs/Day Years Used Date Smoking Tobacco: Former Cigarettes Passive Smoke Exposure: Never Smokeless Tobacco: Never Tobacco Cessation:Counseling Given: Not Answered Alcohol Use Standard Drinks/Week Comments Never 0 (1 standard drink = 0.6 oz pur e alcohol) Depression Answer Date Recorded Patient Health Questionnaire-9 Score 2 06/14/2024 Patient Health Questionnaire-9 Score 2 06/14/2024 Last PHQ-9: Questionnaire Data Not on file 0 06/14/2024 Housing Stability Answer Date Recorded What is your housing situation today? I have [place] 02/16/[address] you li ve. Do you have problems with any of the following? None of the above 02/16/2024 Food Insecurity Answer Date Recorded Within the past 12 months, y ou worried that your food would run out before you got money to buy more: Never True 07/26/2023 Within the past 12 months,th e food you bought just didn't last and you didn't have enough money to get more: Never True Transportation Answer Date Recorded In the past 12 months, has l ack of transportation kept you from medical appts, meetings, work or from getting things needed for daily living? No 07/26/2023 Utilities Answer Date Recorded In the past 12 months, has t he electric, gas, oil or water company threatened to shut off services in your home? No 07/26/2023 Depression Answer Date Recorded Patient Health Questionnaire-2 Score 0 06/14/2024 Internet Access Answer Date Recorded Internet Access Q1 Yes 06/12/2024 Internet Access Q2 Not on file 06/12/2024 Comments No Sex and Gender Information Value Date Recorded Sex Assigned at Female 08/10/2022 10:15 AM EDT Legal Sex Female 10:15 AM EDT Gender Identity Female 08/10/2022 10:15 AM EDT Sexual Orientation Straight 08/10/2022 10 :15 AM EDT Last Filed Vital Signs Vital Sign Reading Time Taken Comments Blood Pressure 134/88 09/13/2024 10:29 AM EST Pulse 88 09/13/2024 10:29 AM EST Temperature 36.2 ??C (97.2 ??F) 09/13/2024 10:[address] Respiratory Rate 20 09/13/2024 10:29 AM EST Oxygen Saturation 99% 09/13/2024 10:29 AM EST Inhaled Oxygen Concentration - - Weight 106 kg (233 lb 2 oz) 09/13/2024 10:29 AM EST Height 162.6 cm (5' 4 ) 09/13/2024 10:29 AM EST Body Mass Index 40.02 09/13/2024 10:29 AM EST Plan of Treatment Health Maintenance Due Date Last Done Comments Family Planning (PISQ) 2002 Pap Smear 2008 SDOH Screening 02/15/2025 02/16/2024 Mammogram 05/07/2025 05/07/2023, 04/22/2022 Alcohol/Substance Use Screening 06/14/2025 06/14/2024 Depression Screening 06/14/2025 06/14/2024, 06/14/20 Tobacco Screening 09/13/2025 09/13/2024 Cervical Cancer Screening 06/16/2027 HPV/Cotest 06/16/2027 06/16/2022, 06/16/2022 Lipid Panel 06/14/2029 06/14/2024, 10/11, 06/07/2023, Additional history exists DTaP/Tdap/Td Vaccines (8 - Td or Tdap) 10/01/2032 10/01/2022, 07/16/2021, 03/02/2011, Additional history exists Zoster Vaccines (1 of 2) 2037 RSV Patients and Patients Aged 60 years or older (1 - 1-dose 75+ series) 2062 IPV Vaccines Completed 04/02/1989, 0502/1988, 1987, Additional history exists HIB Vaccines Completed 12/23/1989 Hepatitis B Vaccines Completed 11/24/1999, 05/22/1999, 04/21/1999 HIV Screening Completed 06/14/2024, 05/13, 06/07/2023, Additional history exists Hepatitis C Screening Completed 06/14/2024 , 06/07/2023, 02/01/2023, Additional history exists COVID-19 Vaccine Completed 09/13/2024, , 09/19/2021, Additional history exists Influenza Vaccine Completed 09/13/2024, , 08/21/2022, Additional history exists HPV Vaccines Aged Out No longer eligi ble based on patient's age to complete this topic Hepatitis A Vaccines Aged Out No long er eligible based on patient's age to complete this topic Meningococcal Vaccine Aged Out No angelo doug eligible based on patient's age to complete this topic Pneumococcal Vaccine: Pediatrics (0 to 5 Years) and At-Risk Patients (6 to 49) Years) Aged Out No longer eligible based on patient's age to complete this topic RSV under 20 months Aged Out No longe r eligible based on patient's age to complete this topic Rotavirus Vaccines Aged Out No longer eligible based on patient's age to complete this topic Procedures Procedure Name Priority Date/Time Associated Diagnosis Comments HEPATITIS C VIRAL RNA, QUANTITATIVE, REAL-TIME PCR Routine 06/14/2024 10:46 AM EDT Encounter for routine history and physical examination of adult HIV 1/2 ANTIGEN/ANTIBODY, FOURTH GENERATION W/RFL Routine 06/14/2024 10:46 AM EDT Encounter for routine history and physical examination of adult LIPID PANEL, STANDARD Routine 06/14/2024 10:46 AM EDT Encounter for routine history and physical examination of adult HM MAMMOGRAPHY Routine 05/07/2023 ZZZ HISTORICAL HPV E6/E7 RFLX QUINTON 16 18/45 Routine 06/16/2022 12:11 PM EDT from Last 3 Months or Most Recently Relevant to Health Maintenance Results * Hepatitis C Viral RNA, Quantitative, Real-Time PCR (06/14/2024 10:46 AM EDT) Pathologist [facility] Hepatitis C Viral Load <15 NOT DETECTED NOT DETECTED IU/mL [facility] HCV Log PCR <1.18 NOT DETECTED NOT DETECTED Log IU/mL [facility] Comment:For additional infor dk, please refer tohttp://education.[employer]/faq/XIX71z0(This link is being provided for informational/educational purposes only.)THIS TEST WAS PERFORMED AT:[facility] [place] [phone] YANEZ MD Blood 06/14/2024 10:4 6 AM EDT 06/14/2024 1:06 PM EDT Winnie Almaraz DESK MAKER LAB BLOOD ORDERABLES Final Res ult [facility] [address] [place] [phone] * HIV-1/2 Antigen and Antibodies, Fourth Generation, with Reflexes (06/14/2024 10:46 AM EDT) Pathologist [facility] HIV AB/AG Nonreactive Nonreactive [facility] Comment:HIV-1 p24 Ag and/or HIV-1/HIV-2 Ab not detected.A test result that is nonreactive does not exclude thepossibility of exposure to or infection with HIV-1 and/orHIV-2. Nonreactive results in this assay for individualswith prior exposure to HIV-1 and/or HIV-2 may be due toantigen and antibody levels that are below the limit ofdetection of this assay.The [employer] HIV Ag/Ab Combo assay result andsupplemental assay results should be interpreted inconjunction with the patient's clinical presentation,history and other laboratory results. If the results areinconsistent with clinical evidence, additional testing issuggested to confirm the result. Blood Venous blood specimen / Unknown 06/14/2024 10:46 AM EDT 06/14/2024 1:06 PM EDT us Winnie Almaraz DESK MAKER LAB BLOOD ORDERABLES Final Res ult [facility] [address] [place] [address] [phone] * (ABNORMAL) Lipid Panel, Standard (06/14/2024 10:46 AM EDT) Triglycerides 132 <150 mg/dL [facility] Comment:Desirable Triglyceri de: less than 150 mg/dLBorderline High Triglyceride 150-199 mg/dLHigh Triglyceride: 200-499 mg/dLVery High Triglyceride: greater than or equal to 5OO mg/dL Cholesterol 193 <200 mg/dL [facility] Comment:Desirable Cholestero l: less than 200 mg/dLBorderline High Cholesterol: 200-239 mg/dLHigh Cholesterol: greater than 239 mg/dL LDL Cholesterol Calculated 127(H) <100 mg/dL [facility] Comment:Desirable LDL: less than 100 mg/dLNear Optimal/Above Optimal LDL: 110- 129 mg/dLBorderline High LDL: 130-159 mg/dLHigh LDL: 160-189 mg/dLVery High LDL: greater than or equal to 190 mg/dL HDL Cholesterol 40(L) >40 mg/dL [facility] Comment:Desirable HDL: great er than 40 mg/dL Note: This HDL assay may give artificially low results in patients with liver disease. Blood Venous blood specimen / Unknown 06/14/2024 10:46 AM EDT 06/14/2024 1:06 PM EDT Winnie Almaraz DESK MAKER LAB BLOOD ORDERABLES Final Res ult [facility] [address] [place] [address] [phone] * Mammography (05/07/2023) Mammogram Bi-rads 2 Anatomical Region Laterality Modality Other Historical Provider HEALTH MAINTENANCE Edited Result - Final * HPV E6/E7 RFLX QUINTON 16 18/45 (06/16/2022 12:11 PM EDT) [facility] HPV mRNA E6/E7 rflx Not Detected Not Detected [facility] Comment: Methodology: Patient Biller-Mediated Amplification This assay detects E6/E7 viral messenger RNA (mRNA) from 14 high-risk HPV types (16,18,31,33,35,39,45,51,52,56,58,59,66,68). Cervical sources are required for HPV testing. If a vaginal source from a patient who has had a total hysterectomy with removal of cervix was submitted, please contact the testing laboratory for alternative testing options. For additional information, please refer to http://education.[employer]/faq/VPC662c8 (This link if provided for information/ educational purposes only.) THIS TEST WAS PERFORMED AT: [facility] [address] [place] [address] [address] [place], [place] [phone] MICHAEL YANEZ MD 06/16/2022 12:1 1 PM EDT [facility] HISTORICAL/NON ORDERABLE LABS Fi nal Result [facility] [address] [place] [address], from Last 3 Months or Most Recently Relevant to Health Maintenance Insurance [facility] Care Teams Ground Instructor Advanced Relationship Specialty Start Date End Date Winnie Almaraz FNP [address] [place] [address] PCP - General Family Medicine 08/01/21
--- OUTSIDE RECORDS SUMMARY | 2024-12-12 08:01 | XMS_ITS | Encounter Summary ---
Author Organization [employer] Address [address] [facility] 7t [place] [address] Care Team Providers Care Crossing Guard Name Role Phone Winnie Almaraz Primary Care Provider [phone] Encounter Details Date Type Department Care Team ([facility] st Contact Info) Description 05/04/2023 Abstract [facility] [address] [place] [address] Winnie Almaraz FNP [address] [place] [phone] Social History Tobacco Use Types Packs/Day Years Used Date Smoking Tobacco: Never Smokeless Tobacco: Never Alcohol Use Standard Drinks/Week Comments Never 0 (1 standard drink = 0.6 oz pur e alcohol) Depression Answer Date Recorded Patient Health Questionnaire-9 Score 4 03/01/2023 Depression Answer Date Recorded Patient Health Questionnaire-2 Score 1 03/01/2023 Comments No Sex and Gender Information Value Date Recorded Sex Assigned at Female 08/10/2022 10:15 AM EDT Legal Sex Female 10:15 AM EDT Gender Identity Female 08/10/2022 10:15 AM EDT Sexual Orientation Straight 08/10/2022 10 :15 AM EDT documented as of this encounter Plan of Treatment Not on file documented as of this encounter Visit Diagnoses Not on filedocumented in this encounter Additional Health Concerns Assessment Noted Time PHQ-9 Depression Total Score: 4 03/01/20 23 1:33 PM EDT documented as of this encounter Care Teams Crossing Guard Relationship Specialty Start Date End Date Winnie Almaraz FNP [address] [place] [address] PCP - General Family Medicine 08/01/21 documented as of this encounter
--- OUTSIDE RECORDS SUMMARY | 2024-12-12 08:01 | XMS_ITS | Encounter Summary ---
Author Organization [employer] Address [address] [facility] [address] [place] [address] Care Team Providers Care Machine Setter Supervisor Name Role Phone Winnie Almaraz JULIAN Primary Care Provider [phone] Encounter Details Date Type Department Care Team (Late st Contact Info) Description 05/17/2023 Orders Only [facility] [address] [place] [address] Provider, Historical, Social History Tobacco Use Types Packs/Day Years [...] on file documented as of this encounter Procedures Procedure Name Priority Date/Time Associated Diagnosis Comments MAMMOGRAPHY Routine 05/07/2023 documented in this encounter Results * Mammography (05/07/2023) Mammogram Bi-rads 2 Anatomical Region Laterality Modality Other Historical Provider HEALTH MAINTENANCE Edited Result - Final documented in this encounter Visit Diagnoses Not on filedocumented in this encounter Additional Health Concerns Assessment Noted Time PHQ-9 Depression Total Score: 4 03/01/20 23 1:33 PM EDT documented as of this encounter Care Teams Machine Setter Supervisor Relationship Specialty Start Date End Date Winnie Almaraz FNP [address] [place] [address] PCP - General Family Medicine 08/01/21 documented as of this encounter
--- OUTSIDE RECORDS SUMMARY | 2024-12-12 08:01 | XMS_ITS | Encounter Summary ---
Author Organization [employer] Address [address] [facility] 7t [place] [address] Care Team Providers Care Coach Name Role Phone Winnie Almaraz Primary Care Provider [phone] Reason for Visit * Reason Onset Date Comments Nurse Triage 10/13/2023 Encounter Details Date Type Department Care Team ([facility] st Contact Info) Description 10/13/2023 Telephone [facility] CHC MED & PEDS [address] [place], [place] [id number] Winnie Almaraz FNP [address] [place] [address] Nurse Triage Social History Tobacco Use Types Packs/Day Years Used Date Smoking Tobacco: Never Passive Smoke Exposure: Never Smokeless Tobacco: Never Alcohol Use Standard Drinks/Week Comments Never 0 (1 standard drink = 0.6 oz pur e alcohol) Depression Answer Date Recorded Patient Health Questionnaire-9 Score 4 03/01/2023 Housing Stability Answer Date Recorded What is your housing situation today? Not on noreen e 07/26/[address] you li ve. Do you have problems with any of the following? None of the above 07/26/2023 Food Insecurity Answer Date Recorded Within the [...] AM EDT documented as of this encounter Miscellaneous Notes * Telephone Encounter - Yadira Louise RN - 10/13/2023 5:16 PM EST Triage call Pt reports going to the dentist and having a high blood pressure reading of 167/110. Pthas not been monitoring BP at home and has had some symptoms of headaches lately with a transient chest pain. Pt is not taking Blood pressure medication. Pt has a follow up apt with PCP 10/27/23. Pt is advised to begin to monitor BP in the morning when gets up for the day and before bed at night write these numbers down and bring information to follow up apt. Pt is advised if symptoms such as increased headaches, dizziness, difficulty with speech or weakness in extremity occurs to seek evaluation at closest ED and Pt agrees. Home care is reviewed, diet changes needed such as adding fresh fruits and vegetables, decrease the salt in diet, stay away from greasy, fried foods and add higher fiberfoods . Pt agrees to begin to make these changes. Exercise increase but, Pt reports being very active at present. Pt agrees with disposition and home care advised. Protocol Used: Blood Pressure - High (Adult) Protocol-Based Disposition: See in Office or Video Visit within 2 Weeks Positive Triage Question: * Systolic BP >= 130 OR Diastolic >= 80, and is not taking BP medications * All higher-acuity triage questions were negative Care Advice Discussed: * High Blood Pressure * High Blood Pressure - Lifestyle Modifications * How to Check Your Blood Pressure? * Reasons To Call Back - Headache, blurred vision, difficulty talking, or difficulty walking occurs - Chest pain or difficulty breathing occurs - You want to go into the office for a blood pressure check - You become worse * Telephone Encounter - Camilo Sherwin - 10/13/2023 4:54 PM EST Symptom: High Blood Pressure - Caller Reports Outcome: Transfer to a nurse or provider NOW! Reason: Chest pain documented in this encounter Plan of Treatment Not on file documented as of this encounter Visit Diagnoses Not on filedocumented in this encounter Additional Health Concerns Assessment Noted Time PHQ-9 Depression Total Score: 4 03/01/20 23 1:33 PM EDT documented as of this encounter Care Teams Coach Relationship Specialty Start Date End Date Winnie Almaraz FNP [address] [place] [id number] PCP - General Family Medicine 08/01/21 documented as of this encounter
== END 2024-12-12 08:38 | disposition home or self-care (01) ==
LOC: HO.HWS 07:58
PROVIDERS: PCP Internal Medicine; Visit Provider Obstetrics & Gynecology
DX: Z30.430 Encounter for insertion of intrauterine contraceptive device (principal); Z32.02 Encounter for pregnancy test, result negative
CPT/HCPCS: 58300

== ENCOUNTER 2024-12-12 07:58 | Outpatient (REF) | payer OTHER, SELFPAY ==
--- OUTSIDE RECORDS SUMMARY | 2024-12-12 08:48 | XMS_ITS | Encounter Summary ---
Author Organization [employer] Address 75 [facility] 7t [place] [address] Care Team Providers Care Histology Technologist Name Role Phone Winnie Almaraz Primary Care Provider [phone] Reason for Visit * Reason Onset Date Comments triage 09/14/2022 Encounter Details Date Type Department Care Team (Late st Contact Info) Description 09/14/2022 Telephone [facility] MEDICINE [address] [place] [address] Winnie Almaraz FNP [address] [place] [address] triage Social History Tobacco Use Types Packs/Day [...] sick visit tomorrow with blue team provider [facility] HOTBED TRANSFER OPERATOR 09/15 at 11am. raheem jaimes. Protocol Used: [...] on filedocumented in this encounter Care Teams Histology Technologist Relationship Specialty Start Date End Date Winnie Almaraz FNP [address] [place] [id number] PCP - General Family Medicine 08/01/21 documented as of this encounter
--- OUTSIDE RECORDS SUMMARY | 2024-12-12 08:49 | XMS_ITS | Encounter Summary ---
Author Organization [employer] Address [address] [facility] 7t [place] [address] Care Team Providers Care Pricing/Signage Team Member Name Role Phone Winnie Almaraz JULIAN Primary Care Provider [phone] Encounter Details Date Type Department Care Team (Late st Contact Info) Description 05/17/2023 Orders Only [facility] MEDICINE [address] [place] [address] Provider, Historical, Social History Tobacco Use Types [...] documented as of this encounter Care Teams Pricing/Signage Team Member Relationship Specialty Start Date End Date Winnie Almaraz FNP [address] [place] [address] PCP - General Family Medicine 08/01/21 documented as of this encounter
--- OUTSIDE RECORDS SUMMARY | 2024-12-12 08:49 | XMS_ITS | Encounter Summary ---
Author Organization [employer] Address [address] [facility] 7t [place] [address] Care Team Providers Care Carpet Inspector Name Role Phone Winnie Almaraz Primary Care Provider [phone] Encounter Details Date Type Department Care Team ([facility] st Contact Info) Description 05/04/2023 Abstract [facility] MEDICINE [address] [place] [address] Winnie Almaraz FNP [address] [place] [id number] Social History Tobacco Use Types Packs/Day Years [...] documented as of this encounter Care Teams Carpet Inspector Relationship Specialty Start Date End Date Winnie Almaraz FNP [address] [place] [address] PCP - General Family Medicine 08/01/21 documented as of this encounter
--- OUTSIDE RECORDS SUMMARY | 2024-12-12 08:49 | XMS_ITS | Encounter Summary ---
Author Organization [employer] Address [address] [facility] 7t [place] [address] Care Team Providers Care Dry Press Operator Name Role Phone Winnie Almaraz Primary Care Provider [phone] Reason for Visit * Reason Onset Date Comments Nurse Triage 10/13/2023 Encounter Details Date Type Department Care Team ([facility] st Contact Info) Description 10/13/2023 Telephone [facility] CHC MED & PEDS [address] [place], [place] [phone] Winnie Almaraz FNP [address] [place] [address] Nurse Triage Social History Tobacco Use Types [...] documented as of this encounter Care Teams Dry Press Operator Relationship Specialty Start Date End Date Winnie Almaraz FNP [address] [place] [phone] PCP - General Family Medicine 08/01/21 documented as of this encounter
--- OUTSIDE RECORDS SUMMARY | 2024-12-12 08:49 | XMS_ITS | Clinical Summary ---
Author Organization [employer] Address 75 [facility] 7t [place] [address] Care Team Providers Care Nuclear Technician Name Role Phone Winnie Almaraz JULIAN Primary Care Provider [phone] Allergies Active Allergy Reactions Criticality Noted Date [...] uterine bleeding 06/14/2024 Overview (06/14/2024): Following with [facility] - Dr. Herrera 02/28/24: Diagnostic hysteroscopy, dilation & curettage d/t AUB, endometrial polyp on EMB. Path negative for atypia or hyperplasia. Normal uterine cavity. Seasonal allergies 06/09/2023 Overview (06/09/2023): Current med regimen includes: ?? Cetirizine 10mg nightly ?? Flonase PRN ?? Ketotifen eye drops PRN Healthcare maintenance 06/09/2023 Overview (06/14/2024): Pap: Last Jun 2022 normal, HPV neg. Followed by [facility] PROMOTIONAL DEMONSTRATOR Last PE: 06/14/24 OPH: CEE 05/11/24 at [facility]. Next due 05/11/26 Contraception: depo Assessment & [...] Plan (09/14/2024 11:43 AM EST): Referred to [facility] Nutrition on 06/14/24, number provided to contact office to schedule appt Assessment & Plan (06/14/2024 10:31 AM EDT): Referred to [facility] Nutrition on 06/14/24 Follow up in 4-6 [...] sent as RVP and send kit from [facility] for pertussis cx -sent written requisition-The sensitivity [...] to isolate and will discuss w daughter archives specialist -to isolate for at least 5 days [...] Description 09/13/2024 10:30 AM EST Office Visit [facility] MEDICINE [address] [place] [address] [phone] Winnie Almaraz FNP Weight gain (Primary Dx); Seasonal allergies; Encounter for immunization; BMI 40.0-44.9, adult ([facility]) 09/13/2024 Travel from Last 3 Months Immunizations [...] Real-Time PCR (06/14/2024 10:46 AM EDT) Pathologist [facility] Hepatitis C Viral Load <15 NOT DETECTED NOT DETECTED IU/mL [facility] HCV Log PCR <1.18 NOT DETECTED NOT DETECTED Log IU/mL [facility] Comment:For additional infor dk, please refer tohttp://education.[employer]/faq/LUR82t4(This link is being provided for informational/educational purposes only.)THIS TEST WAS PERFORMED AT:[facility] [place] [id number] YANEZ MD Blood 06/14/2024 10:4 6 AM EDT 06/14/2024 1:06 PM EDT Winnie Almaraz GROUP CONTRACT ANALYST LAB BLOOD ORDERABLES Final Res ult [facility] [address] [place] [phone] * HIV-1/2 Antigen and Antibodies, Fourth Generation, with Reflexes (06/14/2024 10:46 AM EDT) Pathologist [facility] HIV AB/AG Nonreactive Nonreactive [facility] Comment:HIV-1 p24 Ag and/or HIV-1/HIV-2 Ab not detected.A test result that is nonreactive does not exclude thepossibility of exposure to or infection with HIV-1 and/orHIV-2. Nonreactive results in this assay for individualswith prior exposure to HIV-1 and/or HIV-2 may be due toantigen and antibody levels that are below the limit ofdetection of this assay.The [employer] HIV Ag/Ab Combo assay result andsupplemental assay results should be interpreted inconjunction with the patient's clinical presentation,history and other laboratory results. If the results areinconsistent with clinical evidence, additional testing issuggested to confirm the result. Blood Venous blood specimen / Unknown 06/14/2024 10:46 AM EDT 06/14/2024 1:06 PM EDT us Winnie Almaraz GROUP CONTRACT ANALYST LAB BLOOD ORDERABLES Final Res ult [facility] [address] [place] [address] [phone] * (ABNORMAL) Lipid Panel, Standard (06/14/2024 10:46 AM EDT) Triglycerides 132 <150 mg/dL [facility] Comment:Desirable Triglyceri de: less than 150 mg/dLBorderline High Triglyceride 150-199 mg/dLHigh Triglyceride: 200-499 mg/dLVery High Triglyceride: greater than or equal to 5OO mg/dL Cholesterol 193 <200 mg/dL [facility] Comment:Desirable Cholestero l: less than 200 mg/dLBorderline High Cholesterol: 200-239 mg/dLHigh Cholesterol: greater than 239 mg/dL LDL Cholesterol Calculated 127(H) <100 mg/dL [facility] Comment:Desirable LDL: less than 100 mg/dLNear Optimal/Above Optimal LDL: 110- 129 mg/dLBorderline High LDL: 130-159 mg/dLHigh LDL: 160-189 mg/dLVery High LDL: greater than or equal to 190 mg/dL HDL Cholesterol 40(L) >40 mg/dL [facility] Comment:Desirable HDL: great er than 40 mg/dL Note: This HDL assay may give artificially low results in patients with liver disease. Blood Venous blood specimen / Unknown 06/14/2024 10:46 AM EDT 06/14/2024 1:06 PM EDT Winnie Almaraz GROUP CONTRACT ANALYST LAB BLOOD ORDERABLES Final Res ult [facility] [address] [place] [phone] * Mammography (05/07/2023) Mammogram Bi-rads 2 Anatomical Region Laterality Modality Other Historical Provider HEALTH MAINTENANCE Edited Result - Final * HPV E6/E7 RFLX QUINTON 16 18/45 (06/16/2022 12:11 PM EDT) [facility] HPV mRNA E6/E7 rflx Not Detected Not Detected [facility] Comment: Methodology: Food Quality Technician-Mediated Amplification This assay detects E6/E7 viral messenger RNA (mRNA) from 14 high-risk HPV types (16,18,31,33,35,39,45,51,52,56,58,59,66,68). Cervical sources are required for HPV testing. If a vaginal source from a patient who has had a total hysterectomy with removal of cervix was submitted, please contact the testing laboratory for alternative testing options. For additional information, please refer to http://education.[employer]/faq/SLO556u5 (This link if provided for information/ educational purposes only.) THIS TEST WAS PERFORMED AT: [facility] [address] [place] [address] [address] [place], [place] ??[phone] MICHAEL YANEZ MD 06/16/2022 12:1 1 PM EDT [facility] HISTORICAL/NON ORDERABLE LABS Fi nal Result [facility] [address] [place] [address], from Last 3 Months or Most Recently Relevant to Health Maintenance Insurance [facility] Care Teams Nuclear Technician Relationship Specialty Start Date End Date Winnie Almaraz FNP [address] [place] [address] PCP - General Family Medicine 08/01/21
[2024-12-12 18:18] LABS: CT PCR NOT DETECTED (Not Detect.); NG PCR NOT DETECTED (Not Detect.)
== END 2024-12-12 07:59 | disposition home or self-care (01) ==
LOC: HO.LNP 07:58
PROVIDERS: PCP Internal Medicine; Visit Provider Obstetrics & Gynecology
DX: Z30.430 Encounter for insertion of intrauterine contraceptive device (principal)
CPT/HCPCS: 58300; 81025; 87491; 87591; J7298

== ENCOUNTER 2025-01-23 14:32 | Outpatient (AMB) | payer OTHER, SELFPAY ==
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
[2025-01-23 14:42] VITALS: BMI 40.0
--- OUTSIDE RECORDS SUMMARY | 2025-01-23 17:46 | XMS_ITS | Encounter Summary ---
Author Organization [employer] Address [address] [facility] 7t [place] [address] Care Team Providers Care Staff Internist Office Based Only Name Role Phone Winnie Almaraz Primary Care Provider [phone] Encounter Details Date Type Department Care Team ([facility] st Contact Info) Description 05/04/2023 Abstract [facility] MEDICINE [address] [place] [address] Winnie Almaraz FNP [address] [place] [address] Social History Tobacco Use Types Packs/Day Years [...] documented as of this encounter Care Teams Staff Internist Office Based Only Relationship Specialty Start Date End Date Winnie Almaraz FNP [address] [place] [address] PCP - General Family Medicine 08/01/21 documented as of this encounter
--- OUTSIDE RECORDS SUMMARY | 2025-01-23 17:46 | XMS_ITS | Encounter Summary ---
Author Organization [employer] Address 75 [facility] 7t [place] [address] Care Team Providers Care Tool Repairer Name Role Phone Winnie Almaraz JULIAN Primary Care Provider [phone] Encounter Details Date Type Department Care Team (Late st Contact Info) Description 05/17/2023 Orders Only [facility] MEDICINE [address] [place] [address] Provider, Historical, Social History Tobacco Use Types [...] documented as of this encounter Care Teams Tool Repairer Relationship Specialty Start Date End Date Winnie Almaraz FNP [address] [place] [address] PCP - General Family Medicine 08/01/21 documented as of this encounter
--- OUTSIDE RECORDS SUMMARY | 2025-01-23 17:46 | XMS_ITS | Clinical Summary ---
Author Organization [employer] Address [address] [facility] [address] [place] [address] Care Team Providers Care Hand Washer Name Role Phone Winnie Almaraz JULIAN Primary Care Provider [phone] Allergies Active Allergy Reactions Criticality Noted Date [...] bleeding 06/14/2024 Overview (06/14/2024): Following with [facility] - Dr. Herrera 02/28/24: Diagnostic hysteroscopy, dilation & curettage d/t AUB, endometrial polyp on EMB. Path negative for atypia or hyperplasia. Normal uterine cavity. Seasonal allergies 06/09/2023 Overview (06/09/2023): Current med regimen includes: ?? Cetirizine 10mg nightly ?? Flonase PRN ?? Ketotifen eye drops PRN Healthcare maintenance 06/09/2023 Overview (06/14/2024): Pap: Last Jun 2022 normal, HPV neg. Followed by [facility] Last PE: 06/14/24 OPH: CEE 05/11/24 at [facility]. Next due 05/11/26 Contraception: depo Assessment & [...] Plan (09/14/2024 11:43 AM EST): Referred to [facility] Nutrition on 06/14/24, number provided to contact office to schedule appt Assessment & Plan (06/14/2024 10:31 AM EDT): Referred to [facility] Nutrition on 06/14/24 Follow up in 4-6 [...] as RVP and send kit from [facility] for pertussis cx -sent written requisition-The sensitivity [...] to isolate and will discuss w daughter law enforcement instructor -to isolate for at least 5 days [...] Encounters Date Type Department Care Team Description 12/12/2024 Orders Only GENERIC EXTERNAL DATA DEPARTMENT Provider, Generic External Data from Last 3 Months Immunizations Name Administration Dates Next Due DTaP 04/20/1991, 9,02/13/1988,1987,1987 Hep B, Adolescent or Pediatric 11/24/1999,1998,04/21/1999 Hib (HbOC) 12/23/1989 IPV 04/02/1989, 8,1987,1986 Influenza injectable quadriv alent IIV4 with preservative 10/22/2017,08/28/2015 Influenza injectable quadriv alent preservative free 10/27/2023,08/21/2022,07/16/2021,2019,07/03/2019 Influenza, IIV3, injectable 08/21/2022,1 ,07/10/2020,2018,10/22/2017,08/28/2015 Influenza, seasonal, injecta ble, preservative free 09/13/2024 MMR 11/23/1990,08/27/1988 Pfizer Covid-19 Vaccine 12+ 09/13/2024, Tdap 10/01/2022,07/16/2021,03/02/2011 Family History Medical History Relation [...] 75+ series) 2062 IPV Vaccines Completed 04/02/1989, 02/1988, 1987, Additional history exists HIB Vaccines Completed [...] Procedure Name Priority Date/Time Associated Diagnosis Comments CHLAMYDIA/N. GONORRHOEAE RNA, TMA, UROGENITAL Routine 12/12/2024 7:58 AM EST HEPATITIS C VIRAL RNA, QUANTITATIVE, REAL-TIME PCR [...] Recently Relevant to Health Maintenance Results * Chlamydia/N. Gonorrhoeae RNA, TMA, Urogenitial (12/12/2024 7:58 AM EST) CT PCR NOT DETECTED Not Detect. [facility] Comment:A not detected test result does not exclude the possibilityof infection because test results can be affected byimproper specimen collection, concurrent antibiotic therapy,or the number of organisms in the specimen which may bebelow the sensitivity of the test. As with many diagnostictests, results from the Xpert CT/NG assay should beinterpreted in conjunction with other laboratory andclinical data available to the clinician.Xpert CT/NG performance has not been evaluated in patientsless than 14 years of age. The assay should not be used forthe evaluationof suspected sexual abuse or for other medico-legalindications. Additional testing is recommended in anycircumstance when false positive or false negative resultscould lead to adverse medical, social or psychologicalconsequences. NG PCR NOT DETECTED Not Detect. [facility] Comment:A not detected test result does not exclude the possibilityof infection because test results can be affected byimproper specimen collection, concurrent antibiotic therapy,or the number of organisms in the specimen which may bebelow the sensitivity of the test. As with many diagnostictests, results from the Xpert CT/NG assay should beinterpreted in conjunction with other laboratory andclinical data available to the clinician.Xpert CT/NG performance has not been evaluated in patientsless than 14 years of age. The assay should not be used forthe evaluationof suspected sexual abuse or for other medico-legalindications. Additional testing is recommended in anycircumstance when false positive or false negative resultscould lead to adverse medical, social or psychologicalconsequences. 12/12/2024 7:58 AM EST 12/12/2024 3:16 PM EST Narrative [facility] - 12/12/2024 6:19 PM EST Vaginal us Generic External Data Provider LAB MICROBIOLOGY - GENERAL ORDERABLES Final Result Performing Organization Address [facility] Co de Phone Number [facility] [address] [place] [phone] * Hepatitis C Viral RNA, Quantitative, Real-Time PCR (06/14/2024 10:46 AM EDT) Pathologist [facility] Hepatitis C Viral Load <15 NOT DETECTED NOT DETECTED IU/mL [facility] HCV Log PCR <1.18 NOT DETECTED NOT DETECTED Log IU/mL [facility] Comment:For additional infor matyandy, please refer tohttp://education.[employer]anderd[employer]/faq/PKH03k2(This link is being provided for informational/educational purposes only.)THIS TEST WAS PERFORMED AT:[facility] [employer] [place] [phone] YANEZ MD Blood 06/14/2024 10:4 6 AM EDT 06/14/2024 1:06 PM EDT us Winnie Almaraz DRAPERY SEWER HAND LAB BLOOD ORDERABLES Final Res ult Performing Organization Address [facility] Co de Phone Number [facility] [address] [place] [phone] * HIV-1/2 Antigen and Antibodies, Fourth Generation, with Reflexes (06/14/2024 10:46 AM EDT) Pathologist [facility] HIV AB/AG Nonreactive Nonreactive [facility] Comment:HIV-1 p24 Ag and/or HIV-1/HIV-2 Ab not detected.A test result that is nonreactive does not exclude thepossibility of exposure to or infection with HIV-1 and/orHIV-2. Nonreactive results in this assay for individualswith prior exposure to HIV-1 and/or HIV-2 may be due toantigen and antibody levels that are below the limit ofdetection of this assay.The [employer] HIV Ag/Ab Combo assay result andsupplemental assay results should be interpreted inconjunction with the patient's clinical presentation,history and other laboratory results. If the results areinconsistent with clinical evidence, additional testing issuggested to confirm the result. Blood Venous blood specimen / Unknown 06/14/2024 10:46 AM EDT 06/14/2024 1:06 PM EDT us Winnie Almaraz DRAPERY SEWER HAND LAB BLOOD ORDERABLES Final Res ult [facility] [address] [place] [phone] * (ABNORMAL) Lipid Panel, Standard (06/14/2024 10:46 AM EDT) Triglycerides 132 <150 mg/dL [facility] Comment:Desirable Triglyceri de: less than 150 mg/dLBorderline High Triglyceride 150-199 mg/dLHigh Triglyceride: 200-499 mg/dLVery High Triglyceride: greater than or equal to 5OO mg/dL Cholesterol 193 <200 mg/dL [facility] Comment:Desirable Cholestero l: less than 200 mg/dLBorderline High Cholesterol: 200-239 mg/dLHigh Cholesterol: greater than 239 mg/dL LDL Cholesterol Calculated 127(H) <100 mg/dL [facility] Comment:Desirable LDL: less than 100 mg/dLNear [...] EDT 06/14/2024 1:06 PM EDT Winnie Almaraz DRAPERY SEWER HAND LAB BLOOD ORDERABLES Final Res ult [facility] [address] [place] [phone] * Mammography (05/07/2023) Mammogram Bi-rads 2 Anatomical Region Laterality Modality Other Historical Provider HEALTH MAINTENANCE Edited Result - Final * HPV E6/E7 RFLX QUINTON 16 18/45 (06/16/2022 12:11 PM EDT) [facility] [address] HPV mRNA E6/E7 rflx Not Detected Not Detected [facility] Comment: Methodology: National Sales Executive-Mediated Amplification This assay detects E6/E7 viral messenger RNA (mRNA) from 14 high-risk HPV types (16,18,31,33,35,39,45,51,52,56,58,59,66,68). Cervical sources are required for HPV testing. If a vaginal source from a patient who has had a total hysterectomy with removal of cervix was submitted, please contact the testing laboratory for alternative testing options. For additional information, please refer to http://education.Vanderdroid/faq/STV437w9 (This link if provided for information/ educational purposes only.) THIS TEST WAS PERFORMED AT: [employer] [address] [place] [address] [address] [place], [place] ??[phone] MICHAEL YANEZ MD 06/16/2022 12:1 1 PM EDT [place] HISTORICAL/NON ORDERABLE LABS Fi nal Result [facility] [address] from Last 3 Months or Most Recently Relevant to Health Maintenance Insurance [facility] Care Teams Hand Washer Relationship Specialty Start Date End Date Winnie Almaraz FNP [address] [place] [phone] PCP - General Family Medicine 08/01/21
--- OUTSIDE RECORDS SUMMARY | 2025-01-23 17:46 | XMS_ITS | Encounter Summary ---
Author Organization [employer] Address [address] [facility] 7t [place] [address] Care Team Providers Care Executive Services Administrator Name Role Phone Winnie Almaraz Primary Care Provider [phone] Reason for Visit * Reason Onset Date Comments triage 09/14/2022 Encounter Details Date Type Department Care Team (Late st Contact Info) Description 09/14/2022 Telephone [facility] MEDICINE [address] [place] [address] Winnie Almaraz FNP [address] [place] [address] triage Social History Tobacco Use Types Packs/Day [...] sick visit tomorrow with blue team provider [facility] DNA SEQUENCING ASSOCIATE 09/15 at 11am. raheem jaimes. Protocol Used: [...] on filedocumented in this encounter Care Teams Executive Services Administrator Relationship Specialty Start Date End Date Winnie Almaraz FNP [address] [place] [phone] PCP - General Family Medicine 08/01/21 documented as of this encounter
--- OUTSIDE RECORDS SUMMARY | 2025-01-23 17:46 | XMS_ITS | Encounter Summary ---
Author Organization [employer] Address [address] [facility] [address] [place] [address] Care Team Providers Care Broom Machine Operator Name Role Phone Winnie Almaraz Primary Care Provider [phone] Reason for Visit * Reason Onset Date Comments Nurse Triage 10/13/2023 Encounter Details Date Type Department Care Team ([facility] st Contact Info) Description 10/13/2023 Telephone [facility] MED & PEDS [address] [place], [place] [phone] Winnie Almaraz FNP [address] [place] [address] Nurse Triage Social History Tobacco Use Types [...] documented as of this encounter Care Teams Broom Machine Operator Relationship Specialty Start Date End Date Winnie Almaraz FNP [address] [place] [phone] PCP - General Family Medicine 08/01/21 documented as of this encounter
== END 2025-01-23 14:50 | disposition home or self-care (01) ==
LOC: HO.HWS 14:32
PROVIDERS: PCP Internal Medicine; Visit Provider Obstetrics & Gynecology
DX: Z30.431 Encounter for routine checking of intrauterine contraceptive device (principal); Z32.02 Encounter for pregnancy test, result negative
CPT/HCPCS: 99213

== ENCOUNTER → 2025-01-23 14:32 | Outpatient (BNVA) | payer OTHER, SELFPAY | PROVIDERS: PCP Internal Medicine; Visit Provider Obstetrics & Gynecology | DX: Z30.431 Encounter for routine checking of intrauterine contraceptive device (principal) | CPT/HCPCS: 81025; 99212 ==

== ENCOUNTER 2025-10-03 08:51 | Outpatient (REF) | payer OTHER, SELFPAY ==
--- OUTSIDE RECORDS SUMMARY | 2025-09-27 13:40 | XMS_ITS | Encounter Summary ---
Author Organization [employer] Address [address] [place] [address] 7t [place] [address] Care Team Providers Care Sole Leveler Machine Name Role Phone Winnie Almaraz Primary Care Provider [phone] Reason for Visit * Reason Comments Cough Encounter Details Date Type Department Care Team ([facility] Contact Info) Description 09/27/2025 1:40 PM EST Office Visit [facility] [address] [place] [address] Odalis Richardson MD [address] [place] [address] Elevated blood pressure reading (Primary Dx); Cough in adult patient; Upper respiratory infection, viral Social History Tobacco Use Types Packs/Day Years [...] your housing situation today? I have megha sing 07/04/[address] you li ve. Do you have problems with any of the following? None of the above 07/04/2025 Food Insecurity Answer Date Recorded Within the past 12 months, y ou worried that your food would run out before you got money to buy more: Never True 07/04/2025 Within the past 12 months,th e food you bought just didn't last and you didn't have enough money to get more: Never True Transportation Answer Date Recorded In the past 12 months, has l ack of transportation kept you from medical appts, meetings, work or from getting things needed for daily living? No 07/04/2025 Utilities Answer Date Recorded In the past 12 months, has t he electric, gas, oil or water company threatened to shut off services in your home? No 07/04/2025 Depression Answer Date Recorded Patient Health Questionnaire-2 Score 0 07/04/2025 Internet Access Answer Date Recorded Internet Access Q1 I am not sure 07/04/2025 Internet Access Q2 Not on file 07/04/2025 Comments No Sex and Gender Information Value Date Recorded Sex Assigned at Female 08/10/2022 10:15 AM EDT Legal Sex Female 10:15 AM EDT Gender Identity Female 08/10/2022 10:15 AM EDT Sexual Orientation Straight 08/10/2022 10 :15 AM EDT documented as of this encounter Last Filed Vital Signs Vital Sign Reading Time Taken Comments Blood Pressure 161/99 09/27/2025 2:11 PM EST Pulse 89 09/27/2025 2:11 PM EST Temperature 36.8 C (98.2 F) 09/27/2025 2:11 PM EST Respiratory Rate 18 09/27/2025 2:11 PM EST Oxygen Saturation 100% 09/27/2025 2:11 PM EST Inhaled Oxygen Concentration - - Weight 104 kg (230 lb) 09/27/2025 2:11 PM EST Height - - Body Mass Index 39.48 07/12/2025 2:20 PM EDT documented in this encounter Progress Notes * Odalis Han MD - 09/27/2025 1:40 PM EST Subjective Patient ID: Odalis Leger is a 40 y.o. female who presents for sick visit HPI 40 y o F w PMX of Obesity, elevated BP in evaluation,anxiety,depression Comes to [facility] Reports having 2 days of runny nose ,sore throat, cough some mild production not able to expectorate -fever 102 at home and chills ,myalgias SOB using JOSE PRN,reports some nausea Daugther 20 y old was diagnosed w Flu infection yesterday in clinic , she lives w patient. --- -LMP has IUD not having periods Review of Systems 2 days of runny nose ,sore throat, cough some mild production not able to expectorate -fever 102 athome and chills ,myalgias SOB Objective BP (!) 161/99 (BP Location: Right arm, Patient Position: Sitting, BP Cuff Size: Adult) Pulse 89 Temp 98.2 ??F (36.8 ??C) (Temporal) Resp 18 Wt 230 lb (104 kg) SpO2 100% BMI 39.48 kg/m?? Physical Exam Constitutional: General: She is not in acute distress. Appearance: Normal appearance. She is obese. She is not ill-appearing. HENT: Head: Normocephalic. Right Ear: Tympanic membrane normal. Left Ear: Tympanic membrane normal. Nose: Nose normal. No congestion or rhinorrhea. Mouth/Throat: Mouth: Mucous membranes are moist. Pharynx: No oropharyngeal exudate or posterior oropharyngeal erythema. Eyes: Extraocular Movements: Extraocular movements intact. Pupils: Pupils are equal, round, and reactive to light. Cardiovascular: Rate and Rhythm: Normal rate and regular rhythm. Pulmonary: Effort: Pulmonary effort is normal. Breath sounds: Normal breath sounds. No wheezing or rhonchi. Abdominal: Palpations: Abdomen is soft. Musculoskeletal: Cervical back: Neck supple. Skin: General: Skin is warm. Neurological: General: No focal deficit present. Mental Status: She is alert. Assessment/Plan Problem List Items Addressed This Visit Elevated blood pressure reading - Primary Pt has elevated BP today , told to have as well before in evaluation with PCP Currently BP could be high in setting of infection but encourage pt to make sure to monitor BP at home and take readings to PCP -pt has Apt w PCP 10/03/2025 Upper respiratory infection, viral Pt w respiratory symptoms and benign ENT , lung and heart exam I was told by [place] that COVID 19 and Flu test were neg ,but reported in system later as Flu positive ? I did send anyway Tamiflu for pt given high likelihood for Flu infection from symptoms ,high reported fever and close contact w Flu case in this pt that has Obesity w risk factors for complication. -tylenol PRN -cepacol PRN -Tamiflu BID x 5 days -JOSE refilled -excuse letter given to pt for work -hand hygiene advised ,mask use , isolation discussed -Alarm signs and symptoms dicussed Relevant Medications Menthol (Cepacol Sore Throat) 5.4 MG lozenge Other Visit Diagnoses Cough in adult patient Relevant Medications albuterol (Ventolin HFA) 108 (90 Base) MCG/ACT inhaler Other Relevant Orders Influenza A (ID NOW Rapid Molecular) (Completed) Influenza B (ID NOW Rapid Molecular) (Completed) POCT Rapid COVID Ag (Completed) documented in this encounter Miscellaneous Notes * Assessment & Plan Note - Odalis Han MD - 09/27/2025 9:43 PM ESTAssociated Problem(s): Upper respiratory infection, viral Pt w respiratory symptoms and benign ENT , lung and heart exam I was told by [place] that COVID 19 and Flu test were neg ,but reported in system later as Flu positive ? I did send anyway Tamiflu for pt given high likelihood for Flu infection from symptoms ,high reported fever and close contact w Flu case in this pt that has Obesity w risk factors for complication. -tylenol PRN -cepacol PRN -Tamiflu BID x 5 days -JOSE refilled -excuse letter given to pt for work -hand hygiene advised ,mask use , isolation discussed -Alarm signs and symptoms dicussed * Assessment & Plan Note - Odalis Han MD - 09/27/2025 9:43 PM ESTAssociated Problem(s): Elevated blood pressure reading Pt has elevated BP today , told to have as well before in evaluation with PCP Currently BP could be high in setting of infection but encourage pt to make sure to monitor BP at home and take readings to PCP -pt has Apt w PCP 10/03/2025 documented in this encounter Plan of Treatment Upcoming Encounters Date Type Department Care Team (Late st Contact Info) Description 10/03/2025 9:00 AM EST Office Visit [facility] [address] [place] [address] Winnie Almaraz, COMPUTED TOMOGRAPHY TECHNOLOGIST [address] [place] [address] documented as of this encounter Procedures Procedure Name Priority Date/Time Associated Diagnosis Comments POCT INFLUENZA B (ID NOW RAPID MOLECULAR) Routine 09/27/2025 2:22 PM EST Cough in adult patient POCT INFLUENZA A (ID NOW RAPID MOLECULAR) Routine 09/27/2025 2:22 PM EST Cough in adult patient POCT RAPID COVID ANTIGEN Routine 09/27/2025 2:22 PM EST Cough in adult patient documented in this encounter Results * POCT Rapid COVID Ag (09/27/2025 2:22 PM EST) Pathologist [facility] Rapid COVID Ag Negative Swab 09/27/2025 2:22 PM EST Odalis Han MD POINT OF CARE AZAM T ENTER/EDIT ORDERABLES Final Result * Influenza B (ID NOW Rapid Molecular) (09/27/2025 2:22 PM EST) Pathologist [facility] Influenza B Negative Negative, Indeterminate [facility] Swab 09/27/2025 2:22 PM EST Odalis Han MD POINT OF CARE AZAM T ENTER/EDIT ORDERABLES Final Result [facility] [address] [place] [phone] * Influenza A (ID NOW Rapid Molecular) (09/27/2025 2:22 PM EST) [facility] Influenza A Negative Negative, Indeterminate [facility] Swab 09/27/2025 2:22 PM EST Odalis Han MD POINT OF CARE TEST ENTER/EDIT ORDERABLES Edited Result - Final [facility] [address] [place] [phone] documented in this encounter Visit Diagnoses Diagnosis Elevated blood pressure reading- Primary Elevated blood pressure reading without diagnosis of hypertension Cough in adult patient Upper respiratory infection, viral documented in this encounter Additional Health Concerns Assessment Noted Time PHQ-9 Depression Total Score: 2 06/14/20 24 9:34 AM EDT documented as of this encounter Care Teams Sole Leveler Machine Relationship Specialty Start Date End Date Winnie Almaraz FNP [address] [place] [address] PCP - General Family Medicine 08/01/21 documented as of this encounter
--- OUTSIDE RECORDS SUMMARY | 2025-10-03 08:57 | XMS_ITS | Encounter Summary ---
Author Organization [employer] Address [address] [facility] 7t [place] [address] Care Team Providers Care Sand Tester Name Role Phone Winnie Almaraz Primary Care Provider [phone] Reason for Visit * Reason Onset Date Comments Nurse Triage 10/13/2023 Encounter Details Date Type Department Care Team ([facility] st Contact Info) Description 10/13/2023 Telephone [facility] CH[facility] MED & PEDS [address] [place] [address] Winnie Almaraz FNP [address] [place] [address] Nurse Triage Social History Tobacco Use Types [...] Description 10/03/2025 9:00 AM EST Office Visit [facility] MEDICINE [address] [place] [address] Winnie Almaraz FNP [address] [place] [address] documented as of this encounter Visit Diagnoses Not on filedocumented in this encounter Additional Health Concerns Assessment Noted Time PHQ-9 Depression Total Score: 4 03/01/20 23 1:33 PM EDT documented as of this encounter Care Teams Sand Tester Relationship Specialty Start Date End Date Winnie Alamraz FNP [address] [place] [address] PCP - General Family Medicine 08/01/21 documented as of this encounter
--- OUTSIDE RECORDS SUMMARY | 2025-10-03 08:57 | XMS_ITS | Encounter Summary ---
Author Organization [employer] Address [address] [facility] [address] [place] [address] Care Team Providers Care Business Services Director Name Role Phone Winnie Almaraz Primary Care Provider [phone] Reason for Visit * Reason Onset Date Comments triage 09/14/2022 Encounter Details Date Type Department Care Team (Late st Contact Info) Description 09/14/2022 Telephone [facility] MEDICINE [address] [place] [address] Winnie Almaraz FNP [address] [place], [place] [phone] triage Social History Tobacco Use Types Packs/Day [...] bookedappt. Agrees to sick visit tomorrow with [place] team provider [facility] JULIAN 09/15 at 11am. MELISSA jaimes. Protocol Used: COVID-19 - Diagnosed or [...] Description 10/03/2025 9:00 AM EST Office Visit [facility] MEDICINE [address] [place] [address] Winnie Almaraz FNP [address] [place] [address] documented as of this encounter Visit Diagnoses Not on filedocumented in this encounter Care Teams Business Services Director Relationship Specialty Start Date End Date Winnie Almaraz FNP [address] [place] [address] PCP - General Family Medicine 08/01/21 documented as of this encounter
--- OUTSIDE RECORDS SUMMARY | 2025-10-03 08:57 | XMS_ITS | Clinical Summary ---
Author Organization [employer] Address [address] [facility] 7[address] [place] [address] Care Team Providers Care Maintenance Engineer [employer] Name Role Phone Winnie Almaraz Primary Care Provider [phone] Allergies Active Allergy Reactions Criticality Noted Date Comments Kiwi Extract Itching 09/12/2021 Other reaction(s): Throat irritation Pineapple Itching 06/03/2023 Medications Multiple Vitamin (Multi-Vitami n) tablet Take 1 tab by mouth daily 08/01/20 21 Active sertraline (Zoloft) 25 MG tablet Take 1 tablet (25 mg) by mouth Once daily. 90 tablet 06/03/20 23 Active EPINEPHrine (Epipen) 0.3 MG/0.3ML injection syringe Inject 0.3 milliliter by intramuscular route once as needed for anaphylaxis. Inject into upper leg. Call 911 after use. 2 each 2 06/14/20 24 Active hydrOXYzine HCl (Atarax) 25 MG tablet TAKE 1 TABLET BY MOUTH ONCE DAILY NEEDED ANXIETY 06/15/20 24 Active Ketotifen Fumarate 0.035 % solutionIndic ations:Season al allergies Administer 1 drop into both eyes if needed in the morning and at bedtime (allergies). 10 mL 11 09/13/20 24 Active amoxicillin (Amoxil) 500 MG capsuleIndica tions:Non-rec urrent acute allergic otitis media of right ear Take 1 tab po bid for 7 days 14 capsule 07/12/20 25 Active Additional Information Patient not taking.Reported on 09/27/2025 cetirizine (ZyrTEC) 10 MG tabletIndicat ions:Seasonal allergies Take 1 tablet (10 mg) by mouth if needed at bedtime for allergies. 90 tablet 3 07/12/20 25 Active fluticasone (Flonase) 50 MCG/ACT nasal sprayIndicati ons:Seasonal allergies Shake gently. Before first use, prime pump. After use, clean tip and replace cap. INSTILL 1-2 SPRAYS IN EACH NOSTRIL ONCE DAILY IN THE MORNING 16 g 11 07/12/20 25 Active Menthol (Cepacol Sore Throat) 5.4 MG lozenge Dissolve 1 tablet in the mouth every 2 (two) hours if needed (sore throat). 20 lozenge 09/27/20 25 Active acetaminophen (Tylenol Extra Strength) 500 MG tablet Take 1 tablet (500 mg) by mouth every 6 (six) hours if needed for mild pain, moderate pain or fever for up to 10 days. 30 tablet 5 3:36 PM EST 09/27/20 25 2024 Active albuterol (Ventolin HFA) 108 (90 Base) MCG/ACT inhaler Inhale 2 puffs Every 4-6 hours as needed for wheezing. 18 g 2 5 3:36 PM EST 09/27/20 25 Active albuterol (Ventolin HFA) 108 (90 Base) MCG/ACT inhaler Inhale 2 puffs Every 4-6 hours as needed for wheezing. 18 g 11 06/14/20 24 2024 Discontinued(R eorder (will not trigger notification to Pharmacy)) acetaminophen (Tylenol) 500 MG tablet Take 1-2 tablets (500-1,000 mg) by mouth every 8 (eight) hours if needed for moderate pain or fever. 100 tablet 3 09/13/20 24 2024 oseltamivir (Tamiflu) 75 MG capsule Take 1 capsule (75 mg) by mouth 2 times daily for 5 days. 10 capsule 5 3:36 PM EST 09/27/20 25 2024 Active Problems Problem Noted Date Diagnosed Date Upper respiratory infection, viral 09/27/2025 Assessment & Plan (09/27/2025 9:43 PM EST): Pt w respiratory symptoms and benign ENT [...] isolation discussed -Alarm signs and symptoms dicussed Elevated blood pressure reading 07/08/2025 Assessment & Plan (09/27/2025 9:43 PM EST): Pt has elevated BP today , told to have as well before in evaluation with PCP Currently BP could be high in setting of infection but encourage pt to make sure to monitor BP at home and take readings to PCP -pt has Apt w PCP 10/03/2025 Assessment & Plan (07/08/2025 4:35 PM EDT): - Elevated on initial and repeat reading in office - Asymptomatic - Encouraged to check home BP readings and follow up if above goal - Offered RN BP visit, but would prefer to f/up in 3 mo w/ PCP Abnormal uterine bleeding 06/14/2024 Overview (07/08/2025): Following with [facility] OBGYN - Dr. Herrera 02/28/24: Diagnostic hysteroscopy, dilation & curettage d/t AUB, endometrial polyp on EMB. Path negative for atypia or hyperplasia. Normal uterine cavity. 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 fluticasone (Flonase) 50 MCG/ACT nasal spray; Shake gently. Before first use, prime pump. After use, clean tip and replace cap. INSTILL 1-2 SPRAYS IN EACH NOSTRIL ONCE DAILY IN THE MORNING Healthcare maintenance 06/09/2023 Overview (07/08/2025): Pap: Last Jun 2022 normal, HPV neg. Followed by [facility] CASTING MACHINE OPERATOR Last PE: 07/04/25 OPH: CEE 05/11/[address] [facility]. Next due 05/11/26 Contraception: IUD (placed 12/2024 at [facility]) Assessment & Plan (10/31/2023 12:01 PM EST): Flu and COVID vaccines administered today Anxiety with depression 06/03/2023 Assessment & Plan (07/08/2025 4:33 PM EDT): Reports doing well overall, continues with combination of coping skills and pharmacotherapy Continues sertraline 25mg daily and hydroxyzine 10mg PRN (reports taking both PRN), prescribed by psych Denies SI/HI/thoughts of self harm Behavioral health: following with therapist Assessment & Plan (06/14/2024 10:34 AM EDT): Reports doing well overall, continues with combination of coping skills and pharmacotherapy Continues sertraline 25mg daily and hydroxyzine 10mg PRN (reports taking both PRN), prescribed by psych Denies SI/HI/thoughts of self harm Behavioral health: following with therapist Assessment & Plan (10/31/2023 12:02 PM EST): Continues sertraline 25mg daily Denies SI/HI/thoughts of self harm Discussed possibility of PRN medication for acute anxiety such as hydroxyzine 10mg. Odalis will consider, and let us know if interested in prescription. Behavioral health: following with therapist Assessment & Plan (06/09/2023 9:58 PM EDT): Continues sertraline 25mg daily Denies SI/HI/thoughts of self harm BMI 40.0-44.9, adult (CMS/HCC) 06/03/2023 Assessment & Plan (07/08/2025 4:33 PM EDT): Referred to [facility] Nutrition on 06/14/24, number provided to contact office to schedule appointment Encourage healthy lifestyle habits such as 150 minutes exercise weekly, and nutrition rich in fiber and vegetables. Assessment & Plan (09/14/2024 11:43 AM EST): Referred to [facility] Nutrition on 06/14/24, number provided to contact office to schedule appt Assessment & Plan (06/14/2024 10:31 AM EDT): Referred to [facility] Nutrition on 06/14/24 Follow up in 4-6 weeks as interested in discussing weight management Acanthosis nigricans 02/09/2019 Microcytic anemia 02/09/2019 Assessment & Plan (07/08/2025 4:33 PM EDT): Hx VICTOR M, reports received iron infusion during Last H/H 14.8/43.3 on 01/11/24 Prior H/H 10.6/33.8 in Nov 2022 Previously prescribed ferrous gluconate MWF, although not always taking consistently d/t GI SE Continues with OTC multivitamin Plan: repeat CBC Assessment & Plan (06/14/2024 10:33 AM EDT): Hx VICTOR M, reports received iron infusion during Last H/H 14.8/43.3 on 01/11/24 Prior H/H 10.6/33.8 in Nov 2022 Previously prescribed ferrous gluconate MWF, although not always taking consistently d/t GI SE Continues with OTC multivitamin Plan: repeat CBC, Iron studies ordered today Assessment & Plan (10/31/2023 12:00 PM EST): Hx VICTOR M, reports received iron infusion during Last H/H 14.3/41.7 on 03/09/23 Prior H/H 10.6/33.8 in Nov 2022 Previously prescribed ferrous gluconate MWF, although not always taking consistently d/t GI SE Continues with multivitamin Plan: repeat CBC, Iron studies ordered today Assessment & Plan (06/09/2023 9:57 PM EDT): Hx VICTOR M, reports received iron infusion during Last H/H 14.3/41.7 on 03/09/23 Prior H/H 10.6/33.8 in Nov 2022 Previously prescribed ferrous gluconate MWF, although not always taking consistently d/t GI SE Currently continues with multivitamin Assessment & Plan (03/08/2023 1:00 PM EDT): Hx VICTOR M Last H/H 10.6/33.8 in Nov 2022 Previously prescribed ferrous gluconate MWF, although not always taking consistently d/t GI SE Currently continues with multivitamin Recheck CBC and iron studies. Consider referral to Heme/Onc for consideration of iron infusion if continues with VICTOR M and unable to tolerate PO supplementation Resolved Problems Problem Noted Date Diagnosed Date Resolved Date Cough 06/29/2024 09/14/2024 Suspected pertussis 06/29/2024 09/14/20 Assessment & Plan (06/29/2024 7:11 PM EDT): [...] sent as RVP and send kit from [facility] for pertussis cx -sent written requisition-The sensitivity [...] to isolate and will discuss w daughter brand coordinator -to isolate for at least 5 days [...] Severe obesity (BMI 35.0-39. 9) with comorbidity (CMS/HCC) 06/03/2023 06/09/2023 Umbilical vein abnormality a ffecting 06/03/2023 10/31/2023 09/14/2022 03/01/2023 Overview (09/14/2022): Onset date per previous EHR 08/21/22, EDC noted on previous EHR as 12/14/22 Depression 02/09/2019 06/09/2023 Encounters Date Type Department Care Team Description 10/02/[address] [facility] [address] [place] [phone] Winnie Almaraz FNP Chart Prep 09/27/2025 1:40 PM EST Office Visit [facility] [address] [address] Odalis Richardson MD Elevated blood pressure reading (Primary Dx); Cough in adult patient; Upper respiratory infection, viral 09/27/2025 Travel 09/24/[address] [facility] [address] [place] [address] [phone] Winnie Almaraz FNP Pre-visit Planning (SDOH screening was completed on 07/04/2025) 07/12/2025 2:20 PM EDT Office Visit [facility] [address] [address] Renetta Christensen MD Non-recurrent acute allergic otitis media of right ear (Primary Dx); Seasonal allergies 07/12/2025 Travel 07/04/2025 9:15 AM EDT Office Visit [facility] [address] [place] [address] Winnie Almaraz FNP Encounter for routine history and physical examination of adult (Primary Dx); Healthcare maintenance; Microcytic anemia; Anxiety with depression; Seasonal allergies; Dietary counseling; Exercise counseling; Abnormal uterine bleeding; Mastodynia of right breast; BMI 40.0-44.9, adult ([facility]); Elevated blood pressure reading 07/04/2025 Travel from Last 3 Months Immunizations Immunization Administration Dates Next Due DTaP 04/20/1991, 9,02/13/1988,1987,1987 Hep B, Adolescent or Pediatric 11/24/1999,1998,04/21/1999 Hib ([facility]) 12/23/1989 IPV 04/02/1989, 8,1987,1986 Influenza injectable quadriv [...] housing situation today? I have [place] 07/04/[address] you li [...] Q2 Not on file 07/04/2025 Comments No Intention Date Recorded No desire to become (finding) 0 07/04/2025 Sex and Gender Information Value Date Recorded [...] (230 lb) 09/27/2025 2:11 PM EST Height 162.6 cm (5' 4 ) 07/12/2025 2:20 PM EDT Body Mass Index 39.48 07/12/2025 2:20 PM EDT Plan of Treatment Upcoming Encounters Date Type Department Care Team (Late st Contact Info) Description 10/03/2025 9:00 AM EST Office Visit [facility] [address] [place] [address] Winnie Almaraz, JULIAN [address] [place] [address] Health Maintenance Due Date Last Done Comments HPV Vaccines (1 - 3-dose series) 2002 Mammogram 05/07/2025 05/07/2023, 04/22/2022 COVID-19 Vaccine ( season) 2025 09/13/2024, 10/27/2023, 09/19/2021, Additional history exists Influenza Vaccine (#1) 2025 , 10/27/2023, 08/21/2022, Additional history exists Alcohol/Substance Use Screening 07/04/2026 07/04/2025 Depression Screening 07/04/2026 07/04/2025, 06/14/20 Disability Screening 07/04/2026 07/04/2025 SDOH Screening 07/04/2026 07/04/2025 Family Planning (PISQ) 07/08/2026 07/08/2025 Tobacco Screening 07/12/2026 07/12/2025 Cervical Cancer Screening 06/16/2027 HPV/Cotest 06/16/2027 06/16/2022, 06/16/2022 Pap Smear 06/16/2027 Lipid Panel 06/14/2029 06/14/2024, 10/11, 06/07/2023, Additional history exists DTaP/Tdap/Td Vaccines (8 - Td or Tdap) 10/01/2032 10/01/2022, 07/16/2021, 03/02/2011, Additional history exists Zoster Vaccines (1 of 2) 2037 RSV Patients and Patients Aged 60 years or older (1 - 1-dose 75+ series) 2062 IPV Vaccines Completed 04/02/1989, 050 02/1988, 1987, Additional history exists HIB Vaccines Completed 12/23/1989 Hepatitis B Vaccines Completed 11/24/1999, 05/22/1999, 04/21/1999 HIV Screening Completed 06/14/2024, 05/13, 06/07/2023, Additional history exists Hepatitis C Screening Completed 06/14/2024 , 06/07/2023, 02/01/2023, Additional history exists Hepatitis A Vaccines Aged Out No long er eligible based on patient's age to complete this topic Meningococcal B Vaccine Aged Out No l onger eligible based on patient's age to complete this topic Meningococcal Vaccine Aged Out No angelo doug eligible based on patient's age to complete this topic Pneumococcal Vaccine: Pediatrics (0 to 5 Years) and At-Risk Patients (6 to 49) Years Aged Out No longer eligible based on patient's age to complete this topic RSV under 20 months Aged Out No longe r eligible based on patient's age to complete this topic Rotavirus Vaccines Aged Out No longer eligible based on patient's age to complete this topic Procedures Procedure Name Priority Date/Time Associated Diagnosis Comments POCT RAPID COVID ANTIGEN Routine 09/27/2025 2:22 PM EST Cough in adult patient POCT INFLUENZA B (ID NOW RAPID MOLECULAR) Routine 09/27/2025 2:22 PM EST Cough in adult patient POCT INFLUENZA A (ID NOW RAPID MOLECULAR) Routine 09/27/2025 2:22 PM EST Cough in adult patient HEPATITIS C VIRAL RNA, QUANTITATIVE, REAL-TIME PCR [...] ZZZ HISTORICAL HPV E6/E7 RFLX QUINTON 16 Routine 06/16/2022 12:11 PM EDT from Last 3 Months or Most Recently Relevant to Health Maintenance Results * Influenza B (ID NOW Rapid Molecular) (09/27/2025 2:22 PM EST) [facility] Influenza B Negative Negative, Indeterminate [facility] Swab 09/27/2025 2:22 PM EST Odalis Han MD POINT OF CARE AZAM T ENTER/EDIT ORDERABLES Final Result Performing Organization Address [facility]/ZIP Co de Phone Number [facility] [address] [place] [phone] * Influenza A (ID NOW Rapid Molecular) (09/27/2025 2:22 PM EST) [facility] Influenza A Negative Negative, Indeterminate [facility] Swab 09/27/2025 2:22 PM EST Odalis Han MD POINT OF CARE TEST ENTER/EDIT ORDERABLES Edited Result - Final Performing Organization Address City/[facility]/ZIP Co de Phone Number [facility] [address] [place] [phone] * POCT Rapid COVID Ag (09/27/2025 2:22 PM EST) [facility] Rapid COVID Ag Negative Swab 09/27/2025 2:22 PM EST Odalis Han MD POINT OF CARE AZAM T ENTER/EDIT ORDERABLES Final Result * Hepatitis C Viral RNA, Quantitative, Real-Time PCR (06/14/2024 10:46 AM EDT) [facility] Hepatitis C Viral Load <15 NOT DETECTED NOT DETECTED IU/mL [facility] HCV Log PCR <1.18 NOT DETECTED NOT DETECTED Log IU/mL [facility] Comment:For additional infor dk, please refer tohttp://education.myRete/faq/CWG44y7(This link is being provided for informational/educational purposes only.)THIS TEST WAS PERFORMED AT:[facility] [place] [phone] YANEZ MD Blood 06/14/2024 10:4 6 AM EDT 06/14/2024 1:06 PM EDT Winnie Almaraz STRATE[employer]IC SOLUTIONS CONSULTANT LAB BLOOD ORDERABLES Final Res ult [facility] [address] [place] [phone] * HIV-1/2 Antigen and Antibodies, Fourth Generation, with Reflexes (06/14/2024 10:46 AM EDT) Pathologist [facility] HIV AB/AG Nonreactive Nonreactive [facility] Comment:HIV-1 p24 Ag and/or HIV-1/HIV-2 Ab not detected.A test result that is nonreactive does not exclude thepossibility of exposure to or infection with HIV-1 and/orHIV-2. Nonreactive results in this assay for individualswith prior exposure to HIV-1 and/or HIV-2 may be due toantigen and antibody levels that are below the limit ofdetection of this assay.The [email or web address] HIV Ag/Ab Combo assay result andsupplemental assay results should be interpreted inconjunction with the patient's clinical presentation,history and other laboratory results. If the results areinconsistent with clinical evidence, additional testing issuggested to confirm the result. Blood Venous blood specimen / Unknown 06/14/2024 10:46 AM EDT 06/14/2024 1:06 PM EDT us Winnie Almaraz STRATEGIC SOLUTIONS CONSULTANT LAB BLOOD ORDERABLES Final Res ult Performing Organization Address City/[facility]/ZIP Co de Phone Number [facility] [address] [place] [phone] * (ABNORMAL) Lipid Panel, Standard (06/14/2024 10:46 AM EDT) Triglycerides 132 <150 mg/dL [facility] Comment:Desirable Triglyceri de: less than 150 mg/dLBorderline High Triglyceride 150-199 mg/dLHigh Triglyceride: 200-499 mg/dLVery High Triglyceride: greater than or equal to 5OO mg/dL Cholesterol 193 <200 mg/dL [facility] Comment:Desirable Cholestero l: less than 200 mg/dLBorderline High Cholesterol: 200-239 mg/dLHigh Cholesterol: greater than 239 mg/dL LDL Cholesterol Calculated 127(H) <100 mg/dL [facility] Comment:Desirable LDL: less than 100 mg/dLNear Optimal/Above Optimal LDL: 110- 129 mg/dLBorderline High LDL: 130-159 mg/dLHigh LDL: 160-189 mg/dLVery High LDL: greater than or equal to 190 mg/dL HDL Cholesterol 40(L) >40 mg/dL [facility] Comment:Desirable HDL: great er than 40 mg/dL Note: This HDL assay may give artificially low results in patients with liver disease. Blood Venous blood specimen / Unknown 06/14/2024 10:46 AM EDT 06/14/2024 1:06 PM EDT Winnie Almaraz [facility] LAB BLOOD ORDERABLES Final Res ult Performing Organization Address City/[facility]/ZIP Co de Phone Number [facility] [address] [place] [phone] * Mammography (05/07/2023) Mammogram Bi-rads 2 Anatomical Region Laterality Modality Other Historical Provider HEALTH MAINTENANCE Edited Result - Final * HPV E6/E7 RFLX QUINTON 16 18/45 (06/16/2022 12:11 PM EDT) HPV mRNA E6/E7 rflx Not Detected Not Detected [facility] Comment: Methodology: Enterprise Security Architect-Mediated Amplification This assay detects E6/E7 viral messenger RNA (mRNA) from 14 high-risk HPV types (16,18,31,33,35,39,45,51,52,56,58,59,66,68). Cervical sources are required for HPV testing. If a vaginal source from a patient who has had a total hysterectomy with removal of cervix was submitted, please contact the testing laboratory for alternative testing options. For additional information, please refer to http://education.myRete/faq/KWT050r6 (This link if provided for information/ educational purposes only.) THIS TEST WAS PERFORMED AT: [facility] [address] [place] [address],[place] [phone] MICHAEL YANEZ MD 06/16/2022 12:1 1 PM EDT us Ara Nunez HISTORICAL/NON ORDERABLE LABS Fi nal Result [facility] [address] from Last 3 Months or Most Recently Relevant to Health Maintenance Insurance 2 * Guarantor: Odalis Guzmán Account Type Relation to Patient Date of Phone Billing Address Personal/Family Self [place], [place] Care Teams Maintenance Engineer [employer] Relationship Specialty Start Date End Date Winnie Almaraz FNP [address] [place] [phone] PCP - General Family Medicine 08/01/21
--- OUTSIDE RECORDS SUMMARY | 2025-10-03 08:58 | XMS_ITS | Encounter Summary ---
Author Organization [employer] Address [address] [facility] [address]t [place] [address] Care Team Providers Care Straight Knife Machine Cutter Name Role Phone Winnie Almaraz Primary Care Provider [phone] Encounter Details Date Type Department Care Team (Late st Contact Info) Description 05/17/2023 Orders Only [facility] [address] [place] [phone] Provider, MD Deepak Social History Tobacco Use Types Packs/Day Years [...] as of this encounter Plan of Treatment Upcoming Encounters Date Type Department Care Team (Late st Contact Info) Description 10/03/2025 9:00 AM EST Office Visit [facility] [address] [place], [place] [phone] Winnie Almaraz FNP [address] [place] [address] [phone] documented as of this encounter Procedures Procedure Name Priority Date/Time Associated Diagnosis Comments MAMMOGRAPHY Routine 05/07/2023 documented in this encounter Results * Hm Mammography (05/07/2023) Mammogram Bi-rads 2 Anatomical Region Laterality Modality Other us Historical Provider HEALTH MAINTENANCE Edited Result - Final documented in this encounter Visit Diagnoses Not on filedocumented in this encounter Additional Health Concerns Assessment Noted Time PHQ-9 Depression Total Score: 4 03/01/20 23 1:33 PM EDT documented as of this encounter Care Teams Straight Knife Machine Cutter Relationship Specialty Start Date End Date Winnie Almaraz FNP [address] [place] [address] PCP - General Family Medicine 08/01/21 documented as of this encounter
--- OUTSIDE RECORDS SUMMARY | 2025-10-03 08:58 | XMS_ITS | Encounter Summary ---
Author Organization [employer] Address [address] [facility] [address] [place] [address] Care Team Providers Care Urgent Care Name Role Phone Winnie Almaraz Primary Care Provider [phone] Encounter Details Date Type Department Care Team (Late st Contact Info) Description 05/04/2023 Abstract [facility] [address] [place] [address] [phone] Winnie Almaraz FNP [address] [place], [place] [phone] Social History Tobacco Use Types Packs/Day Years [...] Description 10/03/2025 9:00 AM EST Office Visit [facility] [address] [place] [phone] Winnie Almaraz FNP [address] [place], [place] [phone] documented as of this encounter Visit Diagnoses Not on filedocumented in this encounter Additional Health Concerns Assessment Noted Time PHQ-9 Depression Total Score: 4 03/01/20 23 1:33 PM EDT documented as of this encounter Care Teams Urgent Care Relationship Specialty Start Date End Date Winnie Almaraz FNP [address] [place] [phone] PCP - General Family Medicine 08/01/21 documented as of this encounter
--- OUTSIDE RECORDS SUMMARY | 2025-10-03 08:58 | XMS_ITS | Encounter Summary ---
Author Organization [employer] Address [address] [facility] [facility] [address] [place] [address] Care Team Providers Care Classification Officer Name Role Phone Winnie Almaraz Primary Care Provider [phone] Reason for Visit * Reason Onset Date Comments Chart Prep 10/02/2025 Encounter Details Date Type Department Care Team ([facility] st Contact Info) Description 10/02/2025 Telephone [facility] [address] [place] [address] Winnie Almaraz FNP [address] [place] [address] Chart Prep Social History Tobacco Use Types Packs/Day Years [...] is your housing situation today? I have [place] 07/04/[address] you [...] encounter Miscellaneous Notes * Telephone Encounter - Anny Arevalo [place] - 10/02/2025 11:31 AM EST Chart Prep Labs: not applicable Images: not applicable [place]: [facility] [place] [facility] [facility] 12/17/2025 @ 8:30 am Vaccines due: Covid, Flu, and HPV Screenings: mammogram Overdue care gaps: Oral health screening documented in this encounter Plan of Treatment Upcoming Encounters Date Type Department Care Team ([facility] st Contact Info) Description 10/03/2025 9:00 AM EST Office Visit [facility] [address] [place] [address] Winnie Almaraz FNP [address] [place] [address] documented as of this encounter Visit Diagnoses Not on filedocumented in this encounter Additional Health Concerns Assessment Noted Time PHQ-9 Depression Total Score: 2 06/14/20 24 9:34 AM EDT documented as of this encounter Care Teams Classification Officer Relationship Specialty Start Date End Date Winnie Almaraz FNP [address] [place] [address] PCP - General Family Medicine 08/01/21 documented as of this encounter
[2025-10-03 11:06] LABS: MANUAL DIFF FLAG NO
[2025-10-03 11:13] LABS: Hematocrit 45.8 % (37.0-47.0); Hemoglobin 15.5 g/dl (12.0-16.0); Imm Gran Abs Auto 0.05 X10*3/uL (0.00-0.03); Imm Gran Pct Auto 0.5 % (0.0-0.4); Lymphocytes Absolute Auto 3.2 X10*3/uL (1.2-4.9); Mean Corpuscular HGB Conc 33.8 g/dl (31.0-35.0); Mean Corpuscular Hemoglobin 29.1 pg (27.0-33.0); Mean Corpuscular Volume 85.9 fL (80.0-98.0); NRBC Abs Auto 0.000 X10*3/uL (0.0-0.012); NRBC Pct Auto 0.0 /100WBC (0.0-0.2); Platelet Count 428 X10*3/uL (160-400); Red Blood Count 5.33 X10*6/uL (4.20-5.50); White Blood Count 10.8 X10*3/uL (4.8-10.8)
[2025-10-03 15:43] LABS: Alanine Aminotransferase 21 U/L (0-31); Albumin Level 4.8 g/dL (3.5-5.0); Alkaline Phosphatase 103 U/L (39-117); Anion Gap 12 (12-20); Aspartate Amino Transferase 26 U/L (5-31); Blood Urea Nitrogen 7 mg/dL (9-16); Calcium 10.0 mg/dL (8.4-10.2); Carbon Dioxide 27 mmol/L (22-29); Chloride 105 mmol/L (96-108); Cholesterol 197 mg/dL (<200); Estimated Glomerular Filt Rate > 60; HDL Cholesterol 42 mg/dL (>40); Potassium 3.8 mmol/L (3.3-5.1); Sodium 140 mmol/L (135-145); Total Protein 7.9 g/dL (6.5-8.0); Triglycerides 141 mg/dL (<150)
== END 2025-10-03 08:52 | disposition home or self-care (01) ==
LOC: HO.HHCL 08:51
PROVIDERS: PCP Registered Nurse; Visit Provider Registered Nurse
DX: Z00.00 Encounter for general adult medical examination without abnormal findings (principal)
CPT/HCPCS: 36415; 80053; 80061; 85025